=== PATIENT | female | born 2005 | race Caucasian/White ===

== ENCOUNTER 2024-03-19 22:44 | Emergency (ER) | payer OTHER, SELFPAY ==
[2024-03-19 22:46] VITALS: BP 132/84; PULSE 117; RESP 18; TEMP 36.7; O2SAT 100; BMI 21.5
[2024-03-19 22:48] VITALS: BP 132/84; PULSE 115; RESP 20; O2SAT 99
[2024-03-19 23:00] VITALS: BP 126/83; PULSE 115; RESP 18; O2SAT 98
--- NOTE | 2024-03-19 23:06 | CT_ITS ---
PROCEDURE INFORMATION: Exam: CT Abdomen And Pelvis With Contrast Exam date and time: 03/19/2024 11:48 PM Age: 19 years old Clinical indication: Abdominal pain; Additional info: Rlq pain TECHNIQUE: Imaging protocol: Computed tomography of the abdomen and pelvis with contrast. Radiation optimization: All CT scans at this facility use at least one of these dose optimization techniques: automated exposure control; mA and/or kV adjustment per patient size (includes targeted exams where dose is matched to clinical indication); or iterative reconstruction. Contrast material: ISOVUE; Contrast volume: 75 ml; Contrast route: IV; COMPARISON: No relevant prior studies available. FINDINGS: Liver: Normal. Gallbladder and biliary ducts: No acute process. Pancreas: Normal. Spleen: Normal. Adrenal glands: The adrenal glands appear normal. Kidneys and ureters: There are no soft tissue renal masses or hydronephrosis. Stomach and bowel: The stomach, small bowel, and colon are well-distended and show no evidence of wall thickening, masses, or obstruction. Appendix: The appendix is normal in appearance. Intraperitoneal space: There is a small volume of free fluid in the pelvis. Vasculature: The abdominal aorta and its major branches appear normal without evidence of aneurysm or stenosis. There are pelvic phleboliths. Lymph nodes: No lymphadenopathy. Urinary bladder: Unremarkable as visualized. Reproductive: 2 cm left adnexal cyst, possibly dominant follicle. Bones/joints: The visualized osseous structures of the abdomen and pelvis appear normal for patient age. Soft tissues: Unremarkable. IMPRESSION: 1. Normal appendix. 2. Small volume free fluid pelvis.
[2024-03-19 23:10] LABS: Microscopic, Urine URINE MICROSCOPIC (MICROSCOPIC)
[2024-03-19 23:13] LABS: Appearance,Urine CLEAR (Clear); Bilirubin,Urine Negative (Negative); Blood, Urine Negative (Negative); Color,Urine YELLOW (Yellow); Glucose,Urine (UA) Negative (Negative); Ketones,Urine TRACE (Negative); Leukocyte Esterase,Urine Negative (Negative); Nitrate,Urine Negative (Negative); Protein,Urine Negative (Negative); Specific Gravity, Urine 1.025 (1.005-1.030); Urobilinogen,Urine 0.2 EU/dl (0.2)
--- NOTE | 2024-03-19 23:13 | HMH.EDGENADL ---
Discharge Plan Disposition Patient Disposition: Home, Self-Care Prescriptions Prescriptions: New bisacodyl 5 mg tablet,delayed release (DR/EC) 5 mg PO DAILY Qty: 30 0RF Referrals Follow up/Referrals: Provider,Referral, MD [Primary Care Provider] - See instructions Activity Restrictions/Add. Instructions Additional Instructions/Restrictions: Please follow disimpaction sheet as discussed. Recommend continuing to take MiraLAX daily and titrate to 1-2 soft stools per day. Clinical Impressions Clinical Impression: Abdominal pain, RLQ Constipation Qualifiers: Constipation type: unspecified constipation type Qualified Code(s): K59.00 - Constipation, unspecified Instructions Patient Instructions: DI for Constipation Discharge ED Provider: Socrates No General Adult HPI General Chief complaint: Abdominal Pain Stated complaint: abdominal pain, nausea Time Seen by Provider: 03/19/24 22:55 Mode of Arrival: Ambulatory Source of Information: Patient Limitations: No Limitations Description of Symptoms (Recalled from ER Triage Doc. by RN): Patient reports RLQ abdominal pain and right flank pain that has been persistent for approximately 2 days. Patient reports swelling to this area for approximately 3 days. Patient has had nausea without vomiting, increased urinary frequency without dysuria, denies vomiting, diarrhea, fevers at home. Patient reports irregular periods, but is currently menstruating. History of Present Illness HPI narrative: 19-year-old female with out significant past medical history presents for right lower quad abdominal pain. She reports that it has been present in her right lower quadrant and now in her right flank for approximate last 2-3 days. She reports increased urination. She reports some nausea but no vomiting. She reports that she only poops approximately once a week, but did but this morning it was soft. She denies any recent fevers. She is currently menstruating but has irregular periods. Has had no abdominal surgery. History of kidney stones Related Data Previous Rx's Medication Instructions Recorded bisacodyl 5 mg tablet,delayed 5 mg PO DAILY #30 tabs 03/20/24 release Allergies Allergy/AdvReac Type Severity Reaction Status Date / Time sulfamethoxazole Allergy Verified 03/19/24 22:57 [From Bactrim] trimethoprim [From Bactrim] Allergy Verified 03/19/24 22:57 [facility] Disclaimer: The information contained in this section may have been updated after the patient was seen, as this information can be updated by other users. Medical History (Updated 03/20/24 @ 00:59 by Jose Bernard MD) No significant past medical history Social History Smoking Status: Current every day smoker alcohol intake: never current occupational status: employed Travel in the last 8 weeks: None ROS Obtained: Yes All systems reviewed & no additional complaints except as documented Physical Exam General General appearance: alert and in no apparent distress Head Head exam: atraumatic and normocephalic Eye Eye exam: Present normal appearance, PERRL and EOMI ENT ENT exam: Present normal oropharynx and normal external ear exam Neck Neck exam: Present normal inspection and full ROM Chest Chest inspection: Present normal inspection and symmetric chest wall rise; Absent tenderness Respiratory Respiratory exam: Present normal lung sounds bilaterally; Absent respiratory distress Cardiovascular Cardiovascular exam: Present regular rate and normal rhythm Abdominal Exam Abdominal exam: Present soft and tenderness (RLQ); Absent distention or guarding Extremities Exam Extremities exam: Present normal inspection; Absent edema or joint swelling Back Exam Back exam: Present normal inspection; Absent tenderness Neurological Exam Neurological exam: Present alert and oriented X3; Absent motor sensory deficit Psychiatric Psychiatric exam: Present normal affect and normal mood Skin Skin exam: Present warm, dry and normal color Lymphatic Lymphatic Findings: no adenopathy Medical Decision Making Medical Records Medical records reviewed: Yes I reviewed the patient's medical records. Rishi Inquiry Pt receiving controlled substance: No Rishi was queried for this patient: No Vital Signs: 03/19/24 22:46 03/19/24 22:48 03/19/24 23:00 Temperature 98.0 F Temperature Source Oral Pulse Rate 115 H 115 H Pulse Rate [Left Radial] 117 H Respiratory Rate 18 20 18 Blood Pressure 132/84 126/83 Blood Pressure [Right Arm] 132/84 Blood Pressure Mean 100 Blood Pressure Mean [Right Arm] 100 Blood Pressure Source Blood Pressure Source [Right Arm] Automatic Cuff Blood Pressure Position Blood Pressure Position [Right Arm] Sitting 02 Sat by Pulse Oximetry 100 99 98 Oxygen Delivery Method Room Air Room Air Room Air 03/19/24 23:30 03/20/24 00:00 03/20/24 01:16 Temperature 98.1 F Temperature Source Oral Pulse Rate 106 H 96 H 62 Pulse Rate [Left Radial] Respiratory Rate 16 17 Blood Pressure 121/74 121/64 123/74 Blood Pressure [Right Arm] Blood Pressure Mean Blood Pressure Mean [Right Arm] Blood Pressure Source Automatic Cuff Blood Pressure Source [Right Arm] Blood Pressure Position Sitting Blood Pressure Position [Right Arm] 02 Sat by Pulse Oximetry 99 100 Oxygen Delivery Method Room Air Room Air Room Air Lab Data Lab results reviewed: Yes I reviewed the patient's lab results. Lab Results 03/19/24 22:53: Urine Color Yellow, Urine Appearance Clear, Urine pH 6.0, Ur Specific [place] 1.025, Urine Protein Negative, Urine Glucose (UA) Negative, Urine Ketones Trace, Urine Blood Negative, Urine Nitrate Negative, Urine Bilirubin Negative, Urine Urobilinogen 0.2, Ur Leukocyte Esterase Negative, Urine RBC None, Urine WBC None, Ur Squamous Epith Cells Occasional, Urine Bacteria None, Urine Mucus 1+ 03/19/24 23:15: WBC 8.0, RBC 4.06 L, Hgb 12.4, Hct 37.1, MCV 91.3, MCH 30.6, MCHC 33.5, RDW 15.4, Plt Count 385, MPV 6.8 L, Neut % (Auto) 56.4, Lymph % (Auto) 37.5, [place] % (Auto) 4.6, Eos % (Auto) 0.8, Baso % (Auto) 0.6, Neut # (Auto) 4.5, Lymph # (Auto) 3.0, [place] # (Auto) 0.4, Eos # (Auto) 0.1, Baso # (Auto) 0.1, Sodium 138, Potassium 3.9, Chloride 103, Carbon Dioxide 26, Anion Gap 12.9, BUN 13, Creatinine 0.80, Estimated Creat Clear 94, Estimated GFR 91, Est GFR ( Amer) 110, Glucose 92, Calcium 9.2, Total Bilirubin 0.3, AST 22, ALT 11 L, Alkaline Phosphatase 43, Total Protein 7.2, Albumin 4.4, Globulin 2.8, Albumin/Globulin Ratio 1.6, Serum HCG, Qual Negative 03/19/24 23:15 03/19/24 23:15 Orders (Tests/Meds): ED MEDICATIONS Discontinued Medications Generic Name Dose Route Start Last Admin Trade Name Freq PRN Reason Stop Dose Admin Iopamidol 75 ml 03/19/24 23:50 03/19/24 23:51 Iopamidol-370 (76%);100ml Bottle IV 03/19/24 23:51 75 ml ONCE ONE Administration Sodium Chloride 10 ml 03/19/24 23:50 03/19/24 23:51 Sodium Chloride 0.9% 10ml Syr (Rad Only) IV 04/18/24 23:49 10 ml NEEDED PRN Administration Maintain IV Site ORDERS Category Date Time Status CT abdomen pelvis w con Stat Cat Scan 03/19/24 23:06 Completed CBC w/Auto Diff [Complete Blood Count Auto Diff] Stat Lab 03/19/24 23:15 Completed CMP [Comprehensive Metabolic Panel] Stat Lab 03/19/24 23:15 Completed HCG Qualitative, Serum Stat Lab 03/19/24 23:15 Completed UA [Urinalysis and Microscopic] Stat Lab 03/19/24 22:53 Completed Medical Decision Narrative: 19-year-old female without significant past medical history presents with 3 days of right lower quadrant pain.. History was obtained interactive discussion with patient. On arrival, patient is [afebrile, hemodynamically stable, satting appropriately, alert, oriented x4, GCS 15], moving all extremities spontaneously. Full physical exam performed and significant for right lower quadrant tenderness. Differential includes but is not limited to , appendicitis, constipation, UTI, pyelonephritis, ureterolithiasis, ovarian pathology Workup initiated including CBC CMP urine urinalysis CT abdomen and pelvis with IV contrast. On re-evaluation, patient [remains afebrile, HD stable.] Laboratory workup independently interpreted by me and significant for negative test, no significant electrolyte derangement, no leukocytosis, urine without evidence of infection. Imaging independently interpreted by me and significant for CT scan without evidence of appendicitis or other significant pathology. Does show somewhat dilated and stool-filled right colon which is almost certainly the cause of patient's symptoms.. See radiology read for full review of final results. Given patient history, exam and workup, patient's presentation most likely represents right-sided constipation. Extensive discussion was had with patient regarding her presentation, workup and treatment. She was given a bowel cleanout sheet and was prescribed bisacodyl. Instructed to titrate MiraLAX to 1-2 soft stools per day. Discharged in stable condition. Return precautions given.. Procedures Risk/Benefits of Procedure(s) Were Explained: Yes Critical Care Critical Care Time Critical Care Time: No
[2024-03-19 23:24] LABS: Mucus,Urine 1+ /lpf; Squamous Epithelial Cell,Urine Occasional #/hpf (0-5)
[2024-03-19 23:26] LABS: Basophils # 0.1 K/mm3 (0-0.2); Basophils % 0.6 % (0.1-2.0); Eosinophils # 0.1 K/mm3 (0.0-0.4); Eosinophils % 0.8 % (0.1-12.0); Hematocrit 37.1 % (37.0-47.0); Hemoglobin 12.4 g/dL (12.2-16.2); Lymphocytes % 37.5 % (10-50); Mean Corpuscular HGB Conc 33.5 g/dL (31.8-35.4); Mean Corpuscular Hemoglobin 30.6 pg (27.0-31.2); Mean Corpuscular Volume 91.3 fl (81-99); Mean Platelet Volume 6.8 fl (7.4-10.4); Monocytes # 0.4 K/mm3 (0.1-1.0); Monocytes % 4.6 % (1.7-9.3); Neutrophils # 4.5 K/mm3 (1.8-7.8); Neutrophils % 56.4 % (37.0-80.0); Platelet Count 385 K/mm3 (142-424); Red Blood Count 4.06 M/mm3 (4.20-5.40); Red Cell Distribution Width 15.4 % (11.5-17.5)
[2024-03-19 23:30] VITALS: BP 121/74; PULSE 106; RESP 16; O2SAT 99
[2024-03-19 23:35] LABS: Alanine Aminotransferase 11 U/L (12-78); Albumin Level 4.4 g/dl (3.5-5.0); Albumin/Globulin Ratio 1.6 (1.1-1.8); Alkaline Phosphatase 43 U/L (38-126); Anion Gap 12.9 mEq/L (5-15); Aspartate Amino Transferase 22 U/L (14-36); Bilirubin,Total 0.3 mg/dl (0.2-1.3); Blood Urea Nitrogen 13 mg/dl (7-17); Calcium 9.2 mg/dl (8.4-10.2); Carbon Dioxide 26 mmol/L (22.0-30.0); Chloride 103 mmol/L (98-107); Creatinine Clearance Estimated 94 mL/min (50-200); Estimated Glomerular Filt Rate 91 ml/min (>60); GFR (African American) 110 ML/MIN (>60); Globulin 2.8 g/dL (1.3-3.2); Glucose 92 mg/dl (74-100); Potassium 3.9 mmoL/L (3.5-5.1); Sodium 138 mmol/L (136-145); Total Protein,Serum 7.2 g/dl (6.3-8.2)
[2024-03-19 23:37] LABS: HCG Qualitative, Serum Negative (Negative)
--- NOTE | 2024-03-19 23:40 | PC.NURSE ---
pt to ct scan via wheelchair
[2024-03-19] MEDS: SODIUM CHLORIDE 0.9% 10ML SYR (RAD ONLY) 10 ML IV (23:51)
[2024-03-19] MEDS: IOPAMIDOL-370 (76%);100ML BOTTLE 75 ML IV (23:51)
[2024-03-20] VITALS: BP 121/64; PULSE 96; O2SAT 100
[2024-03-20 01:16] VITALS: BP 123/74; PULSE 62; RESP 17; TEMP 36.7; O2SAT 100
== END 2024-03-20 01:18 | disposition home or self-care (01) ==
PROVIDERS: Emergency Medicine; Emergency Provider Student in an Organized Health Care Education/Training Program
DX: R10.31 Right lower quadrant pain (principal); K59.00 Constipation, unspecified; R11.0 Nausea; F17.210 Nicotine dependence, cigarettes, uncomplicated
CPT/HCPCS: 74177; 80053; 81001; 84703; 85025; 99284; Q9967

== ENCOUNTER 2024-10-29 23:03 | Observation (INO) | payer OTHER, SELFPAY ==
[2024-10-29 23:24] VITALS: BP 109/83; PULSE 110; RESP 16; TEMP 36.8; O2SAT 100; BMI 20.8
--- NOTE | 2024-10-29 23:27 | PC.NURSE ---
Pt awake alert and oriented Symptoms have been going on for months. Pt states pain worse for an episode tonight. Skin pale warm and dry Resp full and easy Speech clear and appropriate. MD at bedside. Abd soft and flat. + bowel sounds x4 Last BM today
[2024-10-29 23:30] VITALS: BP 111/73; PULSE 98; O2SAT 100
[2024-10-29] MEDS: 0.9 % SODIUM CHLORIDE 1000ML 1,000 ML 999 ML IV (23:39)
[2024-10-29 23:42] LABS: Basophils % 0.5 % (0.1-2.0); Eosinophils # 0.1 K/mm3 (0.0-0.4); Eosinophils % 0.8 % (0.1-12.0); Hematocrit 35.2 % (37.0-47.0); Hemoglobin 11.5 g/dL (12.2-16.2); Lymphocytes # 2.1 K/mm3 (0.7-4.5); Lymphocytes % 33.3 % (10-50); Mean Corpuscular HGB Conc 32.7 g/dL (31.8-35.4); Mean Corpuscular Hemoglobin 29.5 pg (27.0-31.2); Mean Corpuscular Volume 90.3 fl (81-99); Mean Platelet Volume 10.7 fl (7.4-10.4); Monocytes # 0.5 K/mm3 (0.1-1.0); Monocytes % 8.6 % (1.7-9.3); Neutrophils # 3.6 K/mm3 (1.8-7.8); Neutrophils % 56.6 % (37.0-80.0); Platelet Count 415 K/mm3 (142-424); Red Cell Distribution Width 13.3 % (11.5-17.5); White Blood Count 6.3 K/mm3 (4.8-10.8)
[2024-10-29 23:43] LABS: Albumin Level 4.8 g/dl (3.5-5.0); Chloride 106 mmol/L (98-107); Potassium 3.8 mmoL/L (3.5-5.1); Sodium 140 mmol/L (136-145)
[2024-10-29 23:45] LABS: Alanine Aminotransferase 17 U/L (12-78); Albumin/Globulin Ratio 2.1 (1.1-1.8); Alkaline Phosphatase 46 U/L (38-126); Anion Gap 13.8 mEq/L (5-15); Aspartate Amino Transferase 25 U/L (14-36); Bilirubin,Total 0.2 mg/dl (0.2-1.3); Blood Urea Nitrogen 10 mg/dl (7-17); Carbon Dioxide 24 mmol/L (22.0-30.0); Creatinine Clearance Estimated 121 mL/min (50-200); Estimated Glomerular Filt Rate 126 ml/min (>60); GFR (African American) 153 ML/MIN (>60); Globulin 2.3 g/dL (1.3-3.2); Total Protein,Serum 7.1 g/dl (6.3-8.2)
[2024-10-29 23:46] LABS: Calcium 9.2 mg/dl (8.4-10.2); Glucose 101 mg/dl (74-100); Lipase 93 U/L (23-300); Magnesium 1.7 mg/dl (1.6-2.3)
--- NOTE | 2024-10-29 23:48 | PC.NURSE ---
ultrasound called in for study
[2024-10-29 23:55] LABS: HCG Qualitative, Serum Negative (Negative)
[2024-10-30] VITALS (7 sets, daily range): BP systolic 96–112; BP diastolic 50–76; PULSE 69–85; RESP 15–18; TEMP 36.7–36.9; O2SAT 97–100
--- NOTE | 2024-10-30 | US_ITS ---
PROCEDURE INFORMATION: Exam: US Pelvis, Transvaginal, Non-Obstetric Exam date and time: 10/30/2024 12:11 AM Age: 19 years old Clinical indication: Pelvic pain; Additional info: Acute severe pelvic pain l>r TECHNIQUE: Imaging protocol: Real-time transvaginal pelvic (non-obstetric) ultrasound with image documentation. Transvaginal imaging was used for better evaluation of the endometrium, adnexa, and/or cervix. COMPARISON: CT ABDOMEN PELVIS W CON 03/19/2024 11:48 PM FINDINGS: Uterus: Uterus is normal. Endometrial stripe measures up to 1.4 cm in thickness. Right ovary/adnexa: Normal. No mass. Normal ovarian blood flow on color Doppler. Left ovary/adnexa: Mildly edematous ovary with peripheral displacement of the follicles. There is a large cystic structure along the inferior aspect of the ovary measuring 2.7 x 2.5 x 2 cm. The ovary measures 5.4 x 2.3 x 3.4 cm with inclusion of the ovarian/paraovarian cyst; without inclusion of the cyst the ovary measures 3.6 x 2.3 x 3.4 cm. Normal ovarian blood flow on color Doppler. Urinary bladder: Urinary bladder is limited. Intraperitoneal space: Mild free fluid. IMPRESSION: 1. Left ovary is mildly edematous with peripherally displaced follicles and no loss of arterial flow. Cannot exclude an intermittent or partial ovarian torsion. 2. A large paraovarian/ovarian simple cyst is present that may act as a lead point. THIS REPORT CONTAINS FINDINGS THAT MAY BE CRITICAL TO PATIENT CARE. The findings were verbally communicated via telephone conference with Jose Bernard at 1:21 AM EST on 10/30/2024. The findings were acknowledged and understood.
[2024-10-30 00:02] LABS: Microscopic, Urine URINE MICROSCOPIC (MICROSCOPIC)
[2024-10-30 00:04] LABS: Appearance,Urine CLEAR (Clear); Bilirubin,Urine Negative (Negative); Blood, Urine Negative (Negative); Color,Urine YELLOW (Yellow); Glucose,Urine (UA) Negative (Negative); Ketones,Urine Negative (Negative); Leukocyte Esterase,Urine Negative (Negative); Nitrate,Urine Negative (Negative); PH,Urine 7.5 (5.0-8.5); Protein,Urine Negative (Negative); Specific Gravity, Urine 1.015 (1.005-1.030); Urobilinogen,Urine 0.2 EU/dl (0.2)
[2024-10-30 00:17] LABS: RBC,Urine Occasional #/hpf (0-3)
--- NOTE | 2024-10-30 00:20 | HMH.EDGENADL ---
Discharge Plan Disposition Patient Disposition: Admitted Prescriptions Prescriptions: No Action bisacodyl 5 mg tablet,delayed release (DR/EC) 5 mg PO DAILY Qty: 30 0RF Clinical Impressions Clinical Impression: Torsion of left ovary Instructions Patient Instructions: DI for Acute Abdominal Pain Print Language Print Language: Russian Discharge ED Provider: Jose Bernard Adult HPI General Chief complaint: Abdominal Pain Stated complaint: abd pain Time Seen by Provider: 10/29/24 23:26 Mode of Arrival: EMS Source of Information: Patient Limitations: No Limitations Description of Symptoms (Recalled from ER Triage Doc. by RN): lower abdominal pain with vomiting History of Present Illness HPI narrative: 19-year-old female presents for acute onset of severe left pelvic pain radiating to the middle. She reports that nothing like this exactly has happened before but she did have some right lower quadrant pain a couple weeks ago. Been dealing with multiple chronic GI issues including upper GI symptoms such as dysphagia. She is also been having some epigastric pain and generalized abdominal pain recently as well. Denies any fever at home. She has been trying to get a scope for her dysphagia issues. Related Data Previous Rx's ?Medication ?Instructions ?Recorded bisacodyl 5 mg tablet,delayed 5 mg PO DAILY #30 tabs 03/20/24 release Allergies Allergy/AdvReac Type Severity Reaction Status Date / Time sulfamethoxazole (From Allergy Verified 03/19/24 22:57 Bactrim) trimethoprim (From Bactrim) Allergy Verified 03/19/24 22:57 [facility] Disclaimer: The information contained in this section may have been updated after the patient was seen, as this information can be updated by other users. Medical History (Updated 10/30/24 @ 01:33 by Jose Bernard MD) No significant past medical history Social History (Updated 03/20/24 @ 01:20 by Jose Bernard MD) Smoking Status: Current every day smoker alcohol intake: never current occupational status: employed Travel in the last 8 weeks: None ROS Obtained: Yes All systems reviewed & no additional complaints except as documented Physical Exam General General appearance: alert and anxious Head Head exam: atraumatic and normocephalic Eye Eye exam: Present normal appearance, PERRL and EOMI ENT ENT exam: Present normal oropharynx and normal external ear exam Neck Neck exam: Present normal inspection and full ROM Chest Chest inspection: Present normal inspection and symmetric chest wall rise; Absent tenderness Respiratory Respiratory exam: Present normal lung sounds bilaterally; Absent respiratory distress Cardiovascular Cardiovascular exam: Present regular rate and normal rhythm Abdominal Exam Abdominal exam: Present soft and tenderness; Absent distention or guarding Abdominal tenderness: Present LLQ (Mild to moderate moderate, no peritonitis) Extremities Exam Extremities exam: Present normal inspection; Absent edema or joint swelling Back Exam Back exam: Present normal inspection; Absent tenderness Neurological Exam Neurological exam: Present alert and oriented X3; Absent motor sensory deficit Psychiatric Psychiatric exam: Present normal affect and normal mood Skin Skin exam: Present warm, dry and normal color Lymphatic Lymphatic Findings: no adenopathy Medical Decision Making Medical Records Medical records reviewed: Yes I reviewed the patient's medical records. Screening: Per USPSTF and CDC recommendations, given the prevalence of disease in our region, it is our hospital?s policy to screen for HIV and viral Hepatitis for all patients aged 18 and over and those with ongoing risk factors. Rishi Inquiry Pt receiving controlled substance: No Rishi was queried for this patient: No Vital Signs: 10/29/24 23:24 10/29/24 23:30 10/30/24 01:14 Temperature 98.2 F Temperature Source Oral Pulse Rate 98 H 84 Pulse Rate [Right Brachial] 110 H Respiratory Rate 16 Blood Pressure 111/73 96/63 L Blood Pressure [Right Arm] 109/83 L Blood Pressure Mean [Right Arm] 91 Blood Pressure Source Blood Pressure Position [Right Arm] Sitting 02 Sat by Pulse Oximetry 100 100 100 Oxygen Delivery Method Room Air Room Air Room Air 10/30/24 01:18 Temperature Temperature Source Pulse Rate 85 Pulse Rate [Right Brachial] Respiratory Rate 15 Blood Pressure 96/63 L Blood Pressure [Right Arm] Blood Pressure Mean [Right Arm] Blood Pressure Source Automatic Cuff Blood Pressure Position [Right Arm] 02 Sat by Pulse Oximetry 100 Oxygen Delivery Method Room Air Lab Data Lab results reviewed: Yes I reviewed the patient's lab results. Lab Results 10/29/24 23:20: WBC 6.3, RBC 3.90 L, Hgb 11.5 L, Hct 35.2 L, MCV 90.3, MCH 29.5, MCHC 32.7, RDW 13.3, Plt Count 415, MPV 10.7 H, Neut % (Auto) 56.6, Lymph % (Auto) 33.3, [place] % (Auto) 8.6, Eos % (Auto) 0.8, Baso % (Auto) 0.5, Neut # (Auto) 3.6, Lymph # (Auto) 2.1, [place] # (Auto) 0.5, Eos # (Auto) 0.1, Baso # (Auto) 0.0, Sodium 140, Potassium 3.8, Chloride 106, Carbon Dioxide 24, Anion Gap 13.8, BUN 10, Creatinine 0.60, Estimated Creat Clear 121, Estimated GFR 126, Est GFR ( Amer) 153, Glucose 101 H, Calcium 9.2, Magnesium 1.7, Total Bilirubin 0.2, AST 25, ALT 17, Alkaline Phosphatase 46, Total Protein 7.1, Albumin 4.8, Globulin 2.3, Albumin/Globulin Ratio 2.1 H, Lipase 93, Serum HCG, Qual Negative, HCV Ab AKIKO w/Rflx PCR Qn Negative, HIV Ag/Ab Combo Qual Negative 10/29/24 23:56: Urine Color Yellow, Urine Appearance Clear, Urine pH 7.5, Ur Specific [place] 1.015, Urine Protein Negative, Urine Glucose (UA) Negative, Urine Ketones Negative, Urine Blood Negative, Urine Nitrate Negative, Urine Bilirubin Negative, Urine Urobilinogen 0.2, Ur Leukocyte Esterase Negative, Urine RBC Occasional, Urine WBC 3-5, Ur Squamous Epith Cells 3-5 10/29/24 23:20 10/29/24 23:20 Orders (Tests/Meds): ED MEDICATIONS Generic Name Dose Route Start Last Admin Trade Name Freq PRN Reason Stop Dose Admin Acetaminophen 650 mg 10/30/24 01:30 Acetaminophen 325mg Tab PO 11/29/24 01:29 Q6HP PRN Fever or Mild Pain (1-3) Lactated Ringer's 1,000 mls @ 90 mls/hr 10/30/24 01:30 Lactated Ringer's 1000 Ml Bag IV 11/29/24 01:29 .[id number] [facility] Ibuprofen 600 mg 10/30/24 01:30 Ibuprofen 600 Mg Tablet PO 11/29/24 01:29 Q6HP PRN Fever or Mild Pain (1-3) Discontinued Medications Generic Name Dose Route Start Last Admin Trade Name Freq PRN Reason Stop Dose Admin Acetaminophen 1,000 mg 10/29/24 23:33 10/30/24 00:00 Acetaminophen 500mg Tab PO 10/29/24 23:34 Not Given ONCE ONE Sodium Chloride 1,000 mls @ 999 mls/hr 10/29/24 23:45 10/29/24 23:39 Sod Chlor 0.9% 1000ml Bag IV 10/30/24 00:45 999 mls/hr .Q1H1M [facility] Administration ORDERS Category Date Time Status US transvaginal Stat Exams 10/30/24 00:00 Completed CBC w/Auto Diff [Complete Blood Count Auto Diff] Stat Lab 10/29/24 23:20 Completed CMP [Comprehensive Metabolic Panel] Stat Lab 10/29/24 23:20 Completed HCG Qualitative, Serum Stat Lab 10/29/24 23:20 Completed HIV Combo Routine Lab 10/29/24 23:20 Completed Hepatitis C Ab Qual. W/ RFX Routine Lab 10/29/24 23:20 Completed Lipase Stat Lab 10/29/24 23:20 Completed Magnesium Stat Lab 10/29/24 23:20 Completed UA [Urinalysis and Microscopic] Stat Lab 10/29/24 23:56 Completed Medical Decision Narrative: 19-year-old female G2, P2 with history of anxiety, dysphagia, chronic abdominal pain presents for acute onset severe left pelvic pain starting a couple hours prior to arrival improved by the time she got to the ER.. History was obtained via interactive discussion with patient. On arrival, patient is [afebrile, hemodynamically stable, satting appropriately, alert, oriented x4, GCS 15], moving all extremities spontaneously. Full physical exam performed and significant for mild to moderate left pelvic tenderness Differential includes but is not limited to ovarian torsion, ectopic , ruptured ovarian cyst, mittelschmerz constipation, UTI pyelonephritis. Patient was given IV fluids, Tylenol for symptomatic management and correction of underlying abnormalities. Workup initiated including CBC CMP test UA transvaginal ultrasound. On re-evaluation, patient [remains afebrile, HD stable.] She has not had return of the severe pain. Remains minimally tender on exam. Laboratory workup independently interpreted by me and significant for no significant leukocytosis, no significant electrolyte derangement, urine not consistent with acute urinary tract infection.. Imaging independently interpreted by me and significant for transvaginal ultrasound shows borderline large edematous left ovary with a large left ovarian cyst. There is good flow but some secondary signs concerning for intermittent torsion. See radiology read for full review of final results. Given patient history, exam and workup, patient's presentation most likely represents intermittent left ovarian torsion. Interactive discussion was had with the [employer]BER GRADER on-call. Given patient is well-appearing and only minimally tender at this time with good flow to the ovary, it was decided that the best course of action would be for admission for observation for possible intermittent torsion. Patient was anxious but agreeable to admission. Procedures Risk/Benefits of Procedure(s) Were Explained: Yes Critical Care Critical Care Time Critical Care Time: No
[2024-10-30 00:33] LABS: HIV Combo NEGATIVE (Negative)
[2024-10-30 00:42] LABS: Hepatitis C Ab Qual. W/ RFX NEGATIVE (Negative)
--- NOTE | 2024-10-30 00:42 | PC.NURSE ---
Report given to Jacquie BEDOYA
--- NOTE | 2024-10-30 01:15 | PC.NURSE ---
Pt laying in bed at this time. Lights turned down per pt request. No other needs voiced at this time.
--- NOTE | 2024-10-30 01:33 | PC.NURSE ---
Report called to Daksha BEDOYA
[2024-10-30] MEDS: LACTATED RINGERS 1000ML 1,000 ML 90 ML IV ×2 (01:40→04:59)
--- NOTE | 2024-10-30 01:50 | PC.NURSE ---
Pt to inpatient unit via wheelchair with IV and RN Pt comfortable at this time Denies pain
--- NOTE | 2024-10-30 01:55 | PC.NURSE ---
Patient arrived to the unit at this time via wheelchair from ED.
--- NOTE | 2024-10-30 05:03 | PC.NURSE ---
Upon entering patient's room to [facility], this RN found a small bottle of water partially drank and an empty Raymond's cup in the patient's bed. Upon arrival to unit patient was instructed to not take anything by mouth. Patient did verbalize this understanding. Patient reports drinking prior to falling asleep about 0440.
--- NOTE | 2024-10-30 05:51 | US_ITS ---
PROCEDURE: US TRANSVAGINAL CLINICAL INDICATION: f/u for intermittent ovarian torsion COMPARISON: CT CT ABDOMEN PELVIS W CON from 03/19/2024 US US TRANSVAGINAL from 10/30/2024 FINDINGS: Transvaginal sonographic images of the pelvis were obtained. UTERUS: 9.9 cm x 5.8 cmx 5.3cm anteverted with a combined endometrial thickness of 19.6mm. LEFT OVARY: 5.6cmx2.8 cmx3.2cm with a volume of 26.3ml. This measurement includes the cyst. The ovary itself without the cyst measures 3.6 cm x 2.8 cm x 3.2 cm. There is a paraovarian cyst measuring 3.0 cm x 1.8 cm x 2.0 cm Similar in appearance to an ultrasound done earlier today. There is good blood flow to the ovary. There are multiple small peripheral follicles. There is free fluid around the left ovary. RIGHT OVARY: 3.0cmx 2.6 cmx 1.7 cm with a volume of 6.9ml. There are multiple small peripheral follicles giving the ovary a polycystic appearance. Both ovaries are seen and appear polycystic. Doppler flow to both ovaries are seen. There is a moderate amount of fluid in the cul-de-sac. This could be inflammatory fluid. IMPRESSION: 1. Anteverted uterus normal in shape and enlarged in size. The endometrium is thickened and likely premenstrual measuring 19.6 mm. 2. The left ovary is visualized and there are multiple small peripheral follicles. The left ovary is normal in size. There is a para- ovarian cyst measuring 3.0 cm in size. There is small amount of free fluid around the left ovary. There is good Doppler flow. 3. Left ovary is similar appearance to the previous ultrasound done few hours earlier. 4. Right ovary is seen and appears polycystic. 5. There is moderate fluid in the cul-de-sac possibly inflammatory. 6. Discussed the findings with Dr. Aly. Dictated by: Victor Hugo Crowe MD 10/30/2024 08:49 Victor Hugo Crowe MD in OV 10/30/2024 08:49
--- NOTE | 2024-10-30 07:20 | PC.NURSE ---
Patient off unit at this time with radiology.
--- NOTE | 2024-10-30 07:21 | PC.NURSE ---
Patient to radiology at this time.
--- NOTE | 2024-10-30 07:49 | PC.NURSE ---
Patient back from radiology.
--- NOTE | 2024-10-30 10:45 | PC.NURSE ---
Vaginal swab obtained. consent obtained prior to this. education provided
--- NOTE | 2024-10-30 12:29 | P.HPDS_ITS ---
General Admission date:: 10/30/24 Discharge date: 10/30/24 *Admission Date: 10/30/24 *Chief complaint: Abdominal pain *History of present illness: Consulted from the emergency department for significant abdominal pain that resolved with 1 dose of Tylenol. ED had concerns for ovarian torsion secondary to an ovarian cyst in the setting of severe pain. Patient denies any nausea or vomiting. Denies any sick contacts. Denies any fevers or chills. She has had 2 children before and states that the pain was worse than this. She is not taking any contraception. Denies that she has a new partner. Denies a history of STDs [facility] Disclaimer: The information contained in this section may have been updated after the patient was seen, as this information can be updated by other users. Medical History (Updated 10/30/24 @ 12:34 by Moriah Aly DO) Dysphagia GERD (gastroesophageal reflux disease) Family History (Updated 10/30/24 @ 02:22 by Daksha Donaldson RN) Grandmother Abdominal aneurysm Dementia Father Heart attack Grandmother Lung cancer Family/Other Breast cancer Mother Dementia POTS (postural orthostatic tachycardia syndrome) Family history of PCOS Sister Family history of PCOS Social History (Updated 10/30/24 @ 02:24 by Daksha Donaldson RN) Smoking Status: Current every day smoker tobacco type: e-cigarettes alcohol intake: never current occupational status: unemployed Travel in the last 8 weeks: None do you feel safe at home: Yes victim of physical abuse: No victim of emotional abuse: No victim of sexual abuse: No Contact w/someone who lives/traveled outside US past 30 days?: No Exposure to someone with infectious disease in past 14 days?: No Do you have a fever (greater than 100.4 F or 38 C)?: No Have you tested positive for COVID-19: No Exposed to someone with COVID-19 in past 14 days?: No Do you have a sore throat?: No Do you have a cough?: No Do you have any weakness?: No Are you experiencing any nausea/vomitting?: No Do you have any diarrhea?: No Are you experiencing any unusual bleeding?: No Do you have any muscle aches/pain?: No Do you have any abdominal pain?: No Are you experiencing loss of taste or smell?: No Other Medical History Have you received the Flu Vaccine for this season: No Have you received the Pneumonia Vaccine: No Review of Systems Review of Systems Review of systems (narrative): Review of Systems Constitutional: Denies fever, chills, and sweats Respiratory: Denies cough and shortness of breath Cardiovascular: Denies chest pain and lightheadedness Gastrointestinal: Admits abdominal pain. Denies nausea, vomiting. Genitourinary: Denies dysuria and incontinence Musculoskeletal: Denies shoulder pain and back pain Neurological: Denies change in speech or headaches Exam Data for Last 24 hours Vital signs and Labs for Last 24 Hours: Temp Pulse Resp BP Pulse Ox O2 Del Method 98.1 F 69 18 96/56 L 100 Room Air 10/30/24 07:45 10/30/24 07:45 10/30/24 07:45 10/30/24 07:45 10/30/24 08:15 10/30/24 10:30 Laboratory Results - last 24 hr 10/29/24 23:20: WBC 6.3, RBC 3.90 L, Hgb 11.5 L, Hct 35.2 L, MCV 90.3, MCH 29.5, MCHC 32.7, RDW 13.3, Plt Count 415, MPV 10.7 H, Neut % (Auto) 56.6, Lymph % (Auto) 33.3, [place] % (Auto) 8.6, Eos % (Auto) 0.8, Baso % (Auto) 0.5, Neut # (Auto) 3.6, Lymph # (Auto) 2.1, [place] # (Auto) 0.5, Eos # (Auto) 0.1, Baso # (Auto) 0.0, Sodium 140, Potassium 3.8, Chloride 106, Carbon Dioxide 24, Anion Gap 13.8, BUN 10, Creatinine 0.60, Estimated Creat Clear 121, Estimated GFR 126, Est GFR ( Amer) 153, Glucose 101 H, Calcium 9.2, Magnesium 1.7, Total Bilirubin 0.2, AST 25, ALT 17, Alkaline Phosphatase 46, Total Protein 7.1, Albumin 4.8, Globulin 2.3, Albumin/Globulin Ratio 2.1 H, Lipase 93, Serum HCG, Qual Negative, HCV Ab AKIKO w/Rflx PCR Qn Negative, HIV Ag/Ab Combo Qual Negative 10/29/24 23:56: Urine Color Yellow, Urine Appearance Clear, Urine pH 7.5, Ur Specific [place] 1.015, Urine Protein Negative, Urine Glucose (UA) Negative, Urine Ketones Negative, Urine Blood Negative, Urine Nitrate Negative, Urine Bilirubin Negative, Urine Urobilinogen 0.2, Ur Leukocyte Esterase Negative, Urine RBC Occasional, Urine WBC 3-5, Ur Squamous Epith Cells 3-5 I & O for Last 24 hours: Intake & Output 10/27/24 10/28/24 10/29/24 10/30/24 23:59 23:59 23:59 23:59 Weight 114 lb Constitutional Constitutional: no acute distress *Routine HEENT Exam Head: Present normocephalic Eye: Present EOMI and PERRL ENT: Present mucous membranes moist *Routine Neck Exam Neck: Present supple; Absent lymphadenopathy *Routine Respiratory Exam Respiratory: Present CTA bilaterally *Routine Cardiovascular Exam Cardiovascular: Present RRR *Routine Abdominal Exam Abdominal: Present soft, normoactive bowel sounds and tenderness (Very minimally tender in the left lower quadrant otherwise benign exam) *Routine Rectal Exam Rectal:: deferred *Routine Genitalia Exam Genitalia:: deferred *Routine Extremities Exam Extremities: Absent cyanosis, clubbing or edema *Routine Skin Exam Skin: Present warm; Absent rash *Routine Neurological Exam Neurological: Present alert and oriented X3 Meds Home Medications and Allergies Home Medications ?Medication ?Instructions ?Recorded ?Confirmed ?Type famotidine 40 mg/5 mL (8 mg/mL) 2.5 ml PO BID 10/30/24 10/30/24 History oral suspension New Prescriptions to Start Prescriptions: Allergies Allergy/AdvReac Type Severity Reaction Status Date / Time sulfamethoxazole (From Allergy Verified 03/19/24 22:57 Bactrim) trimethoprim (From Bactrim) Allergy Verified 03/19/24 22:57 Hospital Course Hospital Course Hospital Course: Patient was admitted for observation and repeat ultrasound this morning. Shira ears to have free fluid in the cul-de-sac likely a ovarian cyst rupture. Ovarian cyst versus fallopian tube cyst noted. Discussed that she should return to the emergency room for severe intractable pain as this may be intermittent torsion. This likelihood is very low as there was flow demonstrated in ultrasounds x 2. In addition to that it is not the clinical picture for torsion as her pain significantly improved with 1 dose of Tylenol and she had no nausea or vomiting. She has absolutely no pain on exam this morning and a very benign abdominal exam. Will repeat this ultrasound in approximately 10 days and have her follow-up after that. Strict return precautions and ED follow-up were given in the meantime. I also provided her with the office phone number so that she could call if any problems arose Results Data Completed and Pending Labs on day of discharge: Labs from last 24 hours 10/29/24 10/29/24 23:56 23:20 WBC 6.3 RBC 3.90 L Hgb 11.5 L Hct 35.2 L MCV 90.3 MCH 29.5 MCHC 32.7 RDW 13.3 Plt Count 415 MPV 10.7 H Neut % (Auto) 56.6 Lymph % (Auto) 33.3 [place] % (Auto) 8.6 Eos % (Auto) 0.8 Baso % (Auto) 0.5 Neut # (Auto) 3.6 Lymph # (Auto) 2.1 [place] # (Auto) 0.5 Eos # (Auto) 0.1 Baso # (Auto) 0.0 Sodium 140 Potassium 3.8 Chloride 106 Carbon Dioxide 24 Anion Gap 13.8 BUN 10 Creatinine 0.60 Estimated Creat Clear 121 Estimated GFR 126 Est GFR ( Amer) 153 Glucose 101 H Calcium 9.2 Magnesium 1.7 Total Bilirubin 0.2 AST 25 ALT 17 Alkaline Phosphatase 46 Total Protein 7.1 Albumin 4.8 Globulin 2.3 Albumin/Globulin Ratio 2.1 H Lipase 93 Serum HCG, Qual Negative Urine Color Yellow Urine Appearance Clear Urine pH 7.5 Ur Specific [place] 1.015 Urine Protein Negative Urine Glucose (UA) Negative Urine Ketones Negative Urine Blood Negative Urine Nitrate Negative Urine Bilirubin Negative Urine Urobilinogen 0.2 Ur Leukocyte Esterase Negative Urine RBC Occasional Urine WBC 3-5 Ur Squamous Epith Cells 3-5 HCV Ab AKIKO w/Rflx PCR Qn Negative HIV Ag/Ab Combo Qual Negative DS: Diagnosis Discharge Diagnosis (1) LLQ abdominal pain: Status: Acute Code(s): R10.32 - Left lower quadrant pain (2) Left pelvic adnexal fluid collection: Status: Acute Code(s): R19.8 - Other specified symptoms and signs involving the digestive system and abdomen (3) Left adnexal tenderness: Status: Acute Code(s): R10.2 - Pelvic and perineal pain Discharge Plan Disposition Patient Disposition: Home, Self-Care Follow up Plan Follow up with: Moriah Aly DO [Staff Physician] - 11/11/24 Prescriptions/Medication Reconciliation: Continued famotidine 40 mg/5 mL (8 mg/mL) suspension for reconstitution 2.5 ml PO BID Patient Comments: Take 2.5 mL( 1/2 teaspoonful) (20 mg) by mouth 2 (two) times a day. Problem Reconciliation Problems Reviewed?: Yes Patient Discharge Instructions ACTIVITY: Continue current activity DIET: regular diet Print Language: Guatemalan Providers Primary Care Provider: Provider,Referral Admit Provider: Moriah Aly Attending Provider: Moriah Aly
--- NOTE | 2024-10-30 13:30 | PC.NURSE ---
D/C education provided at this time. Encouraged questions. Strict return precautions given to patient.
[2024-11-05 02:08] LABS: Atopobium vaginae Low - 0 Score (.); BVAB2 Low - 0 Score (.); Candida albicans NAA Negative (Negative); Candida glabrata Negative (Negative); Chlamydia Trachomatis NAA Negative (Negative); HSV 1 NAA Negative (Negative); HSV 2 NAA Negative (Negative); Megasphaera 1 Low - 0 Score (.); Neisseria gonorrhoeae NAA Negative (Negative); Trich vag NAA Negative (Negative)
== END 2024-10-30 13:50 | disposition home or self-care (01) ==
LOC: ER 10-30 01:33 → OB 10-30 01:43
PROVIDERS: Admitting Provider Obstetrics & Gynecology; Emergency Provider Emergency Medicine; Visit Provider Obstetrics & Gynecology
DX: R10.32 Left lower quadrant pain (principal); R19.8 Other specified symptoms and signs involving the digestive system and abdomen; R10.2 Pelvic and perineal pain; F17.290 Nicotine dependence, other tobacco product, uncomplicated
CPT/HCPCS: 76830; 80053; 81001; 83690; 83735; 84703; 85025; 86803; 87389; 87491; 87529; 87591; 87661; 87798; 87801; G0378; J7030; J7120

== ENCOUNTER 2025-02-13 23:09 | Emergency (ER) | payer SELFPAY ==
[2025-02-13 23:15] VITALS: BP 143/95; PULSE 105; RESP 22; TEMP 36.8; O2SAT 100; BMI 21.2
[2025-02-13 23:30] VITALS: BP 126/81; PULSE 99; RESP 18; O2SAT 100
--- NOTE | 2025-02-13 23:30 | ECG_ITS ---
APPROVED REPORT Exam: Resting ECG HR:115 bpm ECG Measurements Heart Rate 115 AXES CA 183 P 57 QRSd 77 QRS 72 QT 322 T 54 QTc 390 Conclusion SINUS TACHYCARDIA NONSPECIFIC T-WAVE ABNORMALITY ABNORMAL RHYTHM ECG UNCONFIRMED REPORT Electronically signed by : RAJI NICOLE, 02/14/2025 06:55:04
--- NOTE | 2025-02-13 23:33 | XR_ITS ---
PROCEDURE INFORMATION: Exam: XR Soft Tissue Neck Exam date and time: 02/14/2025 12:03 AM Age: 19 years old Clinical indication: Dysphagia / difficulty swallowing; Additional info: Globus sensation, swallowed a peanut TECHNIQUE: Imaging protocol: Radiologic exam of the soft tissues of the neck. COMPARISON: CR Chest 02/13/2025 11:59 PM FINDINGS: Airway: Normal. No abnormal narrowing. Soft tissues: Normal. Normal epiglottis. Bones/joints: Unremarkable. IMPRESSION: No acute findings.
--- NOTE | 2025-02-13 23:33 | XR_ITS ---
PROCEDURE INFORMATION: Exam: XR Chest Exam date and time: 02/13/2025 11:59 PM Age: 19 years old Clinical indication: Pain; On breathing; Additional info: Globus sensation, chest pain TECHNIQUE: Imaging protocol: Radiologic exam of the chest. Views: 2 views. COMPARISON: CT ABDOMEN PELVIS W CON 03/19/2024 11:48 PM FINDINGS: Lungs: No consolidation. Pleural spaces: No pleural effusion. No pneumothorax. Heart/Mediastinum: No cardiomegaly. Bones/joints: Unremarkable. IMPRESSION: No acute findings.
--- NOTE | 2025-02-13 23:37 | ED_ITS ---
Discharge Plan Disposition Patient Disposition: Home, Self-Care Prescriptions Prescriptions: No Action famotidine 40 mg/5 mL (8 mg/mL) suspension for reconstitution 2.5 ml PO BID Patient Comments: Take 2.5 mL( 1/2 teaspoonful) (20 mg) by mouth 2 (two) times a day. Referrals Follow up/Referrals: Cristofer Rich II, MD [Staff Physician] - See instructions Provider,ReferralMD [Primary Care Provider] - See instructions Activity Restrictions/Add. Instructions Additional Instructions/Restrictions: Please follow-up with your primary care provider. Please return to the emergency department if you develop any new or worsening symptoms or become concerned for your health. Consider calling our GI doctor or following up through your primary care doctor to have an endoscopy to further assess your dysphagia. Clinical Impressions Clinical Impression: Globus sensation, Anxiousness Print Language Print Language: Khmer Discharge ED Provider: Jose Bernard General Adult HPI General Chief complaint: Chest Pain Stated complaint: Chest Pain Time Seen by Provider: 02/13/25 23:10 Mode of Arrival: Wheelchair Description of Symptoms (Recalled from ER Triage Doc. by RN): Pt presents to ED for CP & SOB because she feels like she has a peanut stuck in her throat. Pt states she ate a milkshake yesterday and it had peanuts and she feels like it is stuck. Pt states CP that radiates into L arm started approx 1.5 hrs ago. Pt states that she has been dx with tachycardia and she's concerned about getting a scope bc she doesn't want to be put to sleep. Pt states she thinks the has POTS but doesn't want to get tested for it. Pt has a plethora of complaints at this time. Pt is A&O*4 and rates pain /10. IV access obtained. VSS. bedside. History of Present Illness HPI narrative: 19-year-old female presents with concern that she has something stuck in her throat. She reports that she drank a milkshake that had peanuts in it yesterday and she felt like it might of gotten stuck. Since that time she has been able to drink multiple boosts protein shakes. She reports that it hurts to swallow. She reports that she sometimes she cannot swallow and she spits things out. She reports history of issues with dysphagia in the past but has not followed up to get a endoscopy. Denies any fever chills. Reports intermittent chest pain. Related Data Home Medications ?Medication ?Instructions ?Recorded ?Confirmed famotidine 40 mg/5 mL (8 mg/mL) 2.5 ml PO BID 10/30/24 10/30/24 oral suspension Allergies Allergy/AdvReac Type Severity Reaction Status Date / Time sulfamethoxazole (From Allergy Verified 03/19/24 22:57 Bactrim) trimethoprim (From Bactrim) Allergy Verified 03/19/24 22:57 PFSH [facility] Disclaimer: The information contained in this section may have been updated after the patient was seen, as this information can be updated by other users. Medical History (Updated 02/14/25 @ 02:16 by Jose Bernard MD) Dysphagia GERD (gastroesophageal reflux disease) Family History (Updated 10/30/24 @ 02:22 by Daksha Donaldson RN) Grandmother Abdominal aneurysm Dementia Father Heart attack Grandmother Lung cancer Family/Other Breast cancer Mother Dementia POTS (postural orthostatic tachycardia syndrome) Family history of PCOS Sister Family history of PCOS Social History (Updated 10/30/24 @ 02:24 by Daksha Donaldson, AURELIANO) Smoking Status: Current every day smoker tobacco type: e-cigarettes alcohol intake: never current occupational status: unemployed Travel in the last 8 weeks?: None do you feel safe at home: Yes victim of physical abuse: No victim of emotional abuse: No victim of sexual abuse: No Have you lived/traveled outside US in past 30 days?: No Contact w/someone who lives/traveled outside US past 30 days?: No Exposure to someone with infectious disease in past 14 days?: No Do you have a fever (greater than 100.4 F or 38 C)?: No Have you tested positive for COVID-19?: No Exposed to someone with COVID-19 in past 14 days?: No Do you have a sore throat?: No Do you have a cough?: No Do you have any weakness?: No Do you have any diarrhea?: No Are you experiencing any unusual bleeding?: No Do you have any muscle aches/pain?: No Do you have any abdominal pain?: No Are you experiencing loss of taste or smell?: No Other Medical History Have you received the Flu Vaccine for this season: No Have you received the Pneumonia Vaccine: No ROS Obtained: Yes All systems reviewed & no additional complaints except as documented Physical Exam General General appearance: alert, in no apparent distress and anxious Head Head exam: atraumatic and normocephalic Eye Eye exam: Present normal appearance, PERRL and EOMI ENT ENT exam: Present normal oropharynx and normal external ear exam Neck Neck exam: Present normal inspection, full ROM and trachea midline; Absent lymphadenopathy or thyromegaly Chest Chest inspection: Present normal inspection and symmetric chest wall rise; Absent tenderness Respiratory Respiratory exam: Present normal lung sounds bilaterally; Absent respiratory distress Cardiovascular Cardiovascular exam: Present regular rate and normal rhythm Abdominal Exam Abdominal exam: Present soft; Absent distention, tenderness or guarding Extremities Exam Extremities exam: Present normal inspection; Absent edema or joint swelling Back Exam Back exam: Present normal inspection; Absent tenderness Neurological Exam Neurological exam: Present alert and oriented X3; Absent motor sensory deficit Psychiatric Psychiatric exam: Present normal affect and normal mood Skin Skin exam: Present warm, dry and normal color Lymphatic Lymphatic Findings: no adenopathy Medical Decision Making Medical Records Medical records reviewed: Yes I reviewed the patient's medical records. Screening: Per USPSTF and CDC recommendations, given the prevalence of disease in our region, it is our hospital?s policy to screen for HIV and viral Hepatitis for all patients aged 18 and over and those with ongoing risk factors. Rishi Inquiry Pt receiving controlled substance: No Rishi was queried for this patient: No Vital Signs: 02/13/25 23:15 02/13/25 23:30 02/14/25 00:00 Temperature 98.3 F Temperature Source Oral Pulse Rate 99 H 105 H Pulse Rate [Left] 105 H Respiratory Rate 22 18 13 Blood Pressure 126/81 119/83 Blood Pressure [Right Arm] 143/95 H Blood Pressure Mean [Right Arm] 111 02 Sat by Pulse Oximetry 100 100 99 02/14/25 01:38 Temperature 98.6 F Temperature Source Oral Pulse Rate 96 H Pulse Rate [Left] Respiratory Rate 19 Blood Pressure 119/83 Blood Pressure [Right Arm] Blood Pressure Mean [Right Arm] 02 Sat by Pulse Oximetry Lab Data Lab results reviewed: Yes I reviewed the patient's lab results. Lab Results 02/13/25 23:15: WBC 7.5, RBC 4.12 L, Hgb 12.9, Hct 39.5, MCV 95.9, MCH 31.3 H, MCHC 32.7, RDW 13.5, Plt Count 366, MPV 10.4, Neut % (Auto) 58.4, Lymph % (Auto) 33.8, [place] % (Auto) 6.7, Eos % (Auto) 0.5, Baso % (Auto) 0.5, Neut # (Auto) 4.4, Lymph # (Auto) 2.5, [place] # (Auto) 0.5, Eos # (Auto) 0.0, Baso # (Auto) 0.0, Sodium 140, Potassium 3.4 L, Chloride 104, Carbon Dioxide 30, Anion Gap 9.4, BUN 15, Creatinine 0.70, Estimated Creat Clear 106, Estimated GFR 106, Est GFR ( Amer) 128, Glucose 104 H, Calcium 9.5, Total Bilirubin 0.2, AST 29, ALT 15, Alkaline Phosphatase 53, Total Protein 7.9, Albumin 5.1 H, Globulin 2.8, Albumin/Globulin Ratio 1.8, Serum HCG, Qual Negative, HCV Ab AKIKO w/Rflx PCR Qn Negative, HIV Ag/Ab Combo Qual Negative 02/13/25 23:15 02/13/25 23:15 Orders (Tests/Meds): ED MEDICATIONS Discontinued Medications Generic Name Dose Route Start Last Admin Trade Name Freq PRN Reason Stop Dose Admin Belladonna Alkaloids 60 ml 02/13/25 23:33 02/13/25 23:44 Belladonna Alkaloids 60 Ml Ml PO 02/13/25 23:34 60 ml ONCE ONE Administration Lactated Ringer's 1,000 mls @ 999 mls/hr 02/13/25 23:45 02/13/25 23:44 Lactated Ringer's 1000 Ml Bag IV 02/14/25 00:45 999 mls/hr .Q1H1M [facility] Administration ORDERS Category Date Time Status CXR 2 view (NOT portable) [XR chest 2V] Stat Exams 02/13/25 23:33 Completed XR soft tissue neck Stat Exams 02/13/25 23:33 Completed Beta HCG, Qual [HCG Qualitative, Serum] Stat Lab 02/13/25 23:15 Completed CBC w/Auto Diff [Complete Blood Count Auto Diff] Stat Lab 02/13/25 23:15 Completed CMP [Comprehensive Metabolic Panel] Stat Lab 02/13/25 23:15 Completed HIV Combo Stat Lab 02/13/25 23:15 Completed Hepatitis C Ab Qual. W/ RFX Stat Lab 02/13/25 23:15 Completed ECG Data Tracing #1: I reviewed this ECG and interpreted as documented below: Sinus tachycardia with ventricular rate of 115, no concerning ischemic changes, no evidence of arrhythmia. ECG initial impression date: 02/13/25 ECG initial impression time: 23:12 Medical Decision Narrative: 19-year-old female with reported history of chronic dysphagia and chronic tachycardia presents with concern for esophageal foreign body after she drank a milkshake with peanuts and yesterday.. History was obtained via interactive discussion with patient. On arrival, patient is [afebrile, hemodynamically stable, satting appropriately, alert, oriented x4, GCS 15], moving all extremities spontaneously. Full physical exam performed and significant for no significant physical exam abnormalities. Differential includes but is not limited to globus sensation, Jennifer-Hough, Boerhaave's, esophageal foreign body. Based on history, it sounds like patient has been able to swallow and tolerate her secretions since the incident yesterday. Low clinical concern for emergent pathology. Will evaluate with basic labs and chest and neck films.. Patient was given GI cocktail for symptomatic management and correction of underlying abnormalities. Workup initiated including test, CBC CMP two-view chest x-ray, soft tissue neck films. On re-evaluation, patient [remains afebrile, HD stable.] Laboratory workup independently interpreted by me and significant for negative test, no leukocytosis. Imaging independently interpreted by me and significant for clear lungs bilaterally without evidence of mediastinal air, no evidence of radiopaque foreign body or other lesion in the neck.. See radiology read for full review of final results. CT with p.o. contrast, endoscopy was considered, but deemed unnecessary due to low clinical concern for emergent pathology.. Given patient history, exam and workup, patient's presentation most likely represents globus sensation secondary to irritation of the esophagus from swallowing the penis yesterday. Patient is able to tolerate liquids here and at home. Patient discharged in stable condition return precautions. I had extensive and repeated discussion with patient regarding numerous topics. patient has many concerns and many anxieties regarding her health, labs, etc. Procedures Risk/Benefits of Procedure(s) Were Explained: Yes Critical Care Critical Care Time Critical Care Time: No
[2025-02-13] MEDS: LACTATED RINGERS 1000ML 1,000 ML 999 ML IV (23:44)
[2025-02-13] MEDS: BELLADONNA ALKALOIDS 60 ML ML PO (23:44)
[2025-02-13 23:46] LABS: Basophils % 0.5 % (0.1-2.0); Eosinophils % 0.5 % (0.1-12.0); Hematocrit 39.5 % (37.0-47.0); Hemoglobin 12.9 g/dL (12.2-16.2); Immature Granulocytes # 0.01 10^3uL; Immature Granulocytes % 0.1 %; Lymphocytes # 2.5 K/mm3 (0.7-4.5); Lymphocytes % 33.8 % (10-50); Mean Corpuscular HGB Conc 32.7 g/dL (31.8-35.4); Mean Corpuscular Hemoglobin 31.3 pg (27.0-31.2); Mean Corpuscular Volume 95.9 fl (81-99); Mean Platelet Volume 10.4 fl (7.4-10.4); Monocytes # 0.5 K/mm3 (0.1-1.0); Monocytes % 6.7 % (1.7-9.3); Neutrophils # 4.4 K/mm3 (1.8-7.8); Neutrophils % 58.4 % (37.0-80.0); Nucleated Red Blood Cells # 0 10^3/uL; Nucleated Red Blood Cells % 0 %; Platelet Count 366 K/mm3 (142-424); Red Blood Count 4.12 M/mm3 (4.20-5.40); Red Cell Distribution Width 13.5 % (11.5-17.5); Red Cell Distribution Width-SD 47.7 fL; White Blood Count 7.5 K/mm3 (4.8-10.8)
[2025-02-13 23:49] LABS: Chloride 104 mmol/L (98-107)
[2025-02-13 23:50] LABS: Albumin Level 5.1 g/dl (3.5-5.0); Potassium 3.4 mmoL/L (3.5-5.1); Sodium 140 mmol/L (136-145)
[2025-02-13 23:52] LABS: Blood Urea Nitrogen 15 mg/dl (7-17); Creatinine Clearance Estimated 106 mL/min (50-200); Estimated Glomerular Filt Rate 106 ml/min (>60); GFR (African American) 128 ML/MIN (>60)
[2025-02-13 23:53] LABS: Alanine Aminotransferase 15 U/L (12-78); Albumin/Globulin Ratio 1.8 (1.1-1.8); Alkaline Phosphatase 53 U/L (38-126); Anion Gap 9.4 mEq/L (5-15); Aspartate Amino Transferase 29 U/L (14-36); Bilirubin,Total 0.2 mg/dl (0.2-1.3); Calcium 9.5 mg/dl (8.4-10.2); Carbon Dioxide 30 mmol/L (22.0-30.0); Globulin 2.8 g/dL (1.3-3.2); Glucose 104 mg/dl (74-100); Total Protein,Serum 7.9 g/dl (6.3-8.2)
[2025-02-14] VITALS: BP 119/83; PULSE 105; RESP 13; O2SAT 99
[2025-02-14 00:02] LABS: HCG Qualitative, Serum Negative (Negative)
[2025-02-14 00:34] LABS: HIV Combo NEGATIVE (Negative)
[2025-02-14 00:42] LABS: Hepatitis C Ab Qual. W/ RFX NEGATIVE (Negative)
[2025-02-14 01:38] VITALS: BP 119/83; PULSE 96; RESP 19; TEMP 37; O2SAT 100
== END 2025-02-14 01:51 | disposition home or self-care (01) ==
PROVIDERS: Emergency Provider Emergency Medicine
DX: R07.9 Chest pain, unspecified (principal); R09.A2 Foreign body sensation, throat; F41.1 Generalized anxiety disorder; K21.00 Gastro-esophageal reflux disease with esophagitis, without bleeding; F17.290 Nicotine dependence, other tobacco product, uncomplicated
CPT/HCPCS: 70360; 71046; 80053; 84703; 85025; 86803; 87389; 93005; 96360; 99285; J7120

== ENCOUNTER 2025-08-31 20:36 | Emergency (ER) | payer OTHER, SELFPAY ==
[2025-08-31 20:51] VITALS: BP 132/78; PULSE 113; RESP 20; TEMP 36.8; O2SAT 100; BMI 21.2
--- NOTE | 2025-08-31 21:07 | ED_ITS ---
Discharge Plan Disposition Patient Disposition: Home, Self-Care Condition: Good Prescriptions Prescriptions: New cephalexin 250 mg/5 mL suspension for reconstitution 500 mg PO TID Qty: 200 0RF No Action famotidine 40 mg/5 mL (8 mg/mL) suspension for reconstitution 2.5 ml PO BID Patient Comments: Take 2.5 mL( 1/2 teaspoonful) (20 mg) by mouth 2 (two) times a day. Referrals Follow up/Referrals: Moriah Aly DO [Staff Physician, [employer]] - See instructions Provider,Referral, [Referring, Medical] - See instructions Activity Restrictions/Add. Instructions Additional Instructions/Restrictions: Take the antibiotics as prescribed. Call Dr. Aly to schedule an appointment in clinic. Return to the emergency department for any acute or worsening symptoms. Clinical Impressions Clinical Impression: Intermittent lower abdominal pain Instructions Patient Instructions: DI for Acute Abdominal Pain Print Language Print Language: Ukrainian Discharge ED Provider: Erin Todd General Adult HPI General Chief complaint: Abdominal Pain Stated complaint: five weeks preg, abdominal pain Time Seen by Provider: 08/31/25 21:07 Mode of Arrival: Ambulatory Source of Information: Patient and Spouse Description of Symptoms (Recalled from ER Triage Doc. by RN): patient presents for lower abdominal pain that started around 1 week ago. she is 5 weeks . she denies any bleeding. 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 the patinet rates her pain 3/10 but oes intermittenly get severe . she sees Nena Zhu at [facility]. History of Present Illness HPI narrative: Patient is a 20-year old female who is G3, P2 presented to the emergency department with left lower quadrant intermittent abdominal pain. Patient states that she has a history of left ovarian torsion. Patient states that she is about 5 weeks has not seen an AUT[employer] DELIVERY DRIVER yet. Patient states that her pain is intermittent in nature, not currently present. Patient denies any urinary symptoms. Patient denies any vaginal bleeding. Patient denies any fevers, diarrhea or vomiting. Related Data Home Medications ?Medication ?Instructions ?Recorded ?Confirmed famotidine 40 mg/5 mL (8 mg/mL) 2.5 ml PO BID 10/30/24 10/30/24 oral suspension Previous Rx's ?Medication ?Instructions ?Recorded cephalexin 250 mg/5 mL oral 500 mg (10 mL) PO TID #200 mL 08/31/25 suspension Allergies Allergy/AdvReac Type Severity Reaction Status Date / Time sulfamethoxazole (From Allergy Verified 03/19/24 22:57 Bactrim) trimethoprim (From Bactrim) Allergy Verified 03/19/24 22:57 PFSH [facility] Disclaimer: The information contained in this section may have been updated after the patient was seen, as this information can be updated by other users. Medical History (Updated 08/31/25 @ 23:09 by Erin Todd DO) Dysphagia GERD (gastroesophageal reflux disease) Family History (Updated 10/30/24 @ 02:22 by Daksha Donaldson RN) Grandmother Abdominal aneurysm Dementia Father Heart attack Grandmother Lung cancer Family/Other Breast cancer Mother Dementia POTS (postural orthostatic tachycardia syndrome) Family history of PCOS Sister Family history of PCOS Social History (Updated 10/30/24 @ 02:24 by Daksha Donaldson RN) Smoking Status: Never smoker alcohol intake: never current occupational status: unemployed Travel in the last 8 weeks?: None do you feel safe at home: Yes victim of physical abuse: No victim of emotional abuse: No victim of sexual abuse: No Have you lived/traveled outside US in past 30 days?: No Contact w/someone who lives/traveled outside US past 30 days?: No Exposure to someone with infectious disease in past 14 days?: No Do you have a fever (greater than 100.4 F or 38 C)?: No Have you tested positive for COVID-19?: No Exposed to someone with COVID-19 in past 14 days?: No Do you have a sore throat?: No Do you have a cough?: No Do you have any weakness?: No Do you have any diarrhea?: No Are you experiencing any unusual bleeding?: No Do you have any muscle aches/pain?: No Do you have any abdominal pain?: No Are you experiencing loss of taste or smell?: No Other Medical History Have you received the Flu Vaccine for this season: No Have you received the Pneumonia Vaccine: No ROS Obtained: Yes All systems reviewed & no additional complaints except as documented and Yes Systems reviewed as appropriate & no additional complaints except as documented Physical Exam General General appearance: alert and in no apparent distress Head Head exam: atraumatic, normocephalic and normal inspection Eye Eye exam: Present normal appearance, PERRL and EOMI; Absent scleral icterus ENT ENT exam: Present normal exam and normal external ear exam Neck Neck exam: Present normal inspection and full ROM Chest Chest inspection: Present normal inspection and symmetric chest wall rise Respiratory Respiratory exam: Present normal lung sounds bilaterally; Absent respiratory distress or wheezes Cardiovascular Cardiovascular exam: Present regular rate, normal rhythm and normal heart sounds Abdominal Exam Abdominal exam: Present soft, distention and tenderness (LLQ tenderness); Absent guarding or rebound Extremities Exam Extremities exam: Present normal inspection and full ROM Back Exam Back exam: Present normal inspection and full ROM Neurological Exam Neurological exam: Present alert and oriented X3 Psychiatric Psychiatric exam: Present normal affect and normal mood Skin Skin exam: Present warm and dry Medical Decision Making Medical Records Medical records reviewed: Yes I reviewed the patient's medical records. Screening: Per USPSTF and CDC recommendations, given the prevalence of disease in our region, it is our hospital?s policy to screen for HIV and viral Hepatitis for all patients aged 18 and over and those with ongoing risk factors. Rishi Inquiry Pt receiving controlled substance: No Vital Signs: 08/31/25 20:51 08/31/25 23:11 Temperature 98.2 F 98.6 F Temperature Source Oral Oral Pulse Rate 86 Pulse Rate [Right Radial] 113 H Respiratory Rate 20 18 Blood Pressure 136/88 Blood Pressure [Right Arm] 132/78 Blood Pressure Mean [Right Arm] 96 Blood Pressure Source [Right Arm] Automatic Cuff Blood Pressure Position [Right Arm] Sitting 02 Sat by Pulse Oximetry 100 Oxygen Delivery Method Room Air Room Air Lab Data Lab results reviewed: Yes I reviewed the patient's lab results. Lab Results 08/31/25 21:03: Urine Color Yellow, Urine Appearance Clear, Urine pH 7.0, Ur Specific [place] 1.025, Urine Protein 1+ A, Urine Glucose (UA) Negative, Urine Ketones Negative, Urine Blood Negative, Urine Nitrate Negative, Urine Bilirubin Negative, Urine Urobilinogen 0.2, Ur Leukocyte Esterase Negative, Urine RBC 5- 10, Urine WBC 5-10, Ur Squamous Epith Cells 20-50, Urine Bacteria 4+, Urine Mucus 4+, Urine HCG, Qual Positive 08/31/25 21:34: WBC 7.6, RBC 3.95 L, Hgb 12.7, Hct 36.8 L, MCV 93.2, MCH 32.2 H, MCHC 34.5, RDW 12.2, Plt Count 429 H, MPV 9.3, Neut % (Auto) 55.7, Lymph % (Auto) 34.9, [place] % (Auto) 7.5, Eos % (Auto) 1.2, Baso % (Auto) 0.4, Neut # (Auto) 4.2, Lymph # (Auto) 2.6, [place] # (Auto) 0.6, Eos # (Auto) 0.1, Baso # (Auto) 0.0, Sodium 138, Potassium 3.9, Chloride 102, Carbon Dioxide 25, Anion Gap 14.9, BUN 7, Creatinine 0.60, Estimated Creat Clear 122, Estimated GFR 125, Est GFR ( Amer) 151, Glucose 93, Calcium 9.5, Total Bilirubin 0.3, AST 25, ALT 12, Alkaline Phosphatase 53, Total Protein 7.8, Albumin 4.6, Globulin 3.2, Albumin/Globulin Ratio 1.4, HCG, Quant [id number] H 08/31/25 21:34 08/31/25 21:34 Orders (Tests/Meds): ED MEDICATIONS Discontinued Medications Generic Name Dose Route Start Last Admin Trade Name Freq PRN Reason Stop Dose Admin Cephalexin HCl 500 mg 08/31/25 21:58 08/31/25 22:36 Cephalexin 500mg Capsule PO 08/31/25 21:59 500 mg ONCE ONE Administration ORDERS Category Date Time Status CBC w/Auto Diff [Complete Blood Count Auto Diff] Stat Lab 08/31/25 21:34 Completed CMP [Comprehensive Metabolic Panel] Stat Lab 08/31/25 21:34 Completed HCG,Quantitative Stat Lab 08/31/25 21:34 Completed Urinalysis and Microscopic Stat Lab 08/31/25 21:03 Completed Urine , HCG Qual. Stat Lab 08/31/25 21:03 Completed Urine Culture Stat Micro 08/31/25 21:03 Received US OB transvaginal Stat Ultrasound 08/31/25 21:14 Completed Medical Decision Narrative: Patient is a 20-year-old female who is G3, P2, about 5 weeks by dates who presents to the emergency department with concern for left lower quadrant abdominal pain. Patient does have a history of ovarian torsion. On exam, patient is hemodynamically stable with unremarkable vital signs. Differential includes but not limited to: Ectopic , ovarian torsion, urinary tract infection, ovarian cyst, amongst others. Patient's labs were reviewed and interpreted by myself: CBC showed no leukocytosis, hemoglobin was stable. CMP was unremarkable. Beta-hCG showed 13,789. UA did have 4+ bacteria, 5-10 white blood cells, multiple squamous cells negative leuk esterase. Ultrasound was performed and showed bilateral ovarian flow, left possible hemorrhagic cyst. Uterus showed intrauterine gestation about 5 weeks 5 days. At this time, I felt the patient was stable and appropriate for discharge. Given that patient did have bacteria in her urine, patient was given a dose of Keflex here in the emergency department. Patient was sent with 5 days of Keflex. Patient has not seen OB for this yet and wishes to follow-up here in [place]. Patient was sent with a referral to Dr. Aly. Patient was given return precautions and patient was otherwise discharged home in stable condition return precautions were discussed Critical Care Critical Care Time Critical Care Time: No
[2025-08-31 21:10] LABS: Microscopic, Urine URINE MICROSCOPIC (MICROSCOPIC)
[2025-08-31 21:14] LABS: Bilirubin,Urine Negative (Negative); Color,Urine YELLOW (Yellow); Glucose,Urine (UA) Negative (Negative); Ketones,Urine Negative (Negative); Leukocyte Esterase,Urine Negative (Negative); PH,Urine 7.0 (5.0-8.5); Protein,Urine 1+ (Negative); Specific Gravity, Urine 1.025 (1.005-1.030); Urobilinogen,Urine 0.2 EU/dl (0.2)
--- NOTE | 2025-08-31 21:14 | US_ITS ---
PROCEDURE INFORMATION: Exam: US , Transvaginal Exam date and time: 08/31/2025 9:46 PM Age: 20 years old Clinical indication: Other: Llq pain; Gestational age or lmp: 5w2d; ; Additional info: R/O torsion TECHNIQUE: Imaging protocol: Real-time transvaginal obstetrical ultrasound of the maternal pelvis with image documentation. Transvaginal imaging was used for better evaluation of the fetus, adnexa, and/or cervix. COMPARISON: US TRANSVAGINAL 10/30/2024 6:56 AM FINDINGS: Gestation: Intrauterine gestational sac with mean sac diameter of 1.0 cm, correlating with an estimated gestational age of 5 weeks 5 days. Small hyperechoic structure within the gestational sac, possibly a yolk sac. MATERNAL: Left ovary/adnexa: In the left adnexa, there is a cystic structure with low-level internal echoes measuring 3.1 x 1.6 x 2.2 cm, similar to prior exam on 11/19/2024. Other findings: There is flow to the bilateral ovaries. IMPRESSION: 1. Intrauterine gestation with an estimated gestational age of 5 weeks 5 days by mean sac diameter. Questionable yolk sac is visualized. 2. Left adnexal cystic structure with low-level internal echoes, possibly a hemorrhagic cyst, similar to prior exam. 3. There is flow to both ovaries demonstrated with Doppler imaging at the time of exam.
[2025-08-31 21:15] LABS: Urine Pregnancy, HCG Qual. Positive (Negative)
[2025-08-31 21:34] LABS: Bacteria,Urine 4+ /lpf; Mucus,Urine 4+ /lpf; Squamous Epithelial Cell,Urine 20-50 #/hpf (0-5)
[2025-08-31 21:42] LABS: Hematocrit 36.8 % (37.0-47.0); Hemoglobin 12.7 g/dL (12.2-16.2); Immature Granulocytes % 0.3 %; Mean Corpuscular HGB Conc 34.5 g/dL (31.8-35.4); Mean Corpuscular Hemoglobin 32.2 pg (27.0-31.2); Mean Corpuscular Volume 93.2 fl (81-99); Nucleated Red Blood Cells % 0 %; Platelet Count 429 K/mm3 (142-424); Red Blood Count 3.95 M/mm3 (4.20-5.40); Red Cell Distribution Width-SD 42.0 fL; White Blood Count 7.6 K/mm3 (4.8-10.8)
[2025-08-31 21:58] LABS: Alanine Aminotransferase 12 U/L (12-78); Albumin Level 4.6 g/dl (3.5-5.0); Albumin/Globulin Ratio 1.4 (1.1-1.8); Alkaline Phosphatase 53 U/L (38-126); Anion Gap 14.9 mEq/L (5-15); Aspartate Amino Transferase 25 U/L (14-36); Bilirubin,Total 0.3 mg/dl (0.2-1.3); Blood Urea Nitrogen 7 mg/dl (7-17); Calcium 9.5 mg/dl (8.4-10.2); Carbon Dioxide 25 mmol/L (22.0-30.0); Chloride 102 mmol/L (98-107); Creatinine Clearance Estimated 122 mL/min (50-200); Creatinine,Serum 0.60 mg/dl (0.52-1.04); Estimated Glomerular Filt Rate 125 ml/min (>60); GFR (African American) 151 ML/MIN (>60); Globulin 3.2 g/dL (1.3-3.2); Glucose 93 mg/dl (74-100); Potassium 3.9 mmoL/L (3.5-5.1); Sodium 138 mmol/L (136-145); Total Protein,Serum 7.8 g/dl (6.3-8.2)
[2025-08-31 23:11] VITALS: BP 136/88; PULSE 86; RESP 18; TEMP 37; O2SAT 100
== END 2025-08-31 23:14 | disposition home or self-care (01) ==
PROVIDERS: Emergency Provider Student in an Organized Health Care Education/Training Program; PCP Emergency Medicine
DX: O26.891 Other specified pregnancy related conditions, first trimester (principal); R10.32 Left lower quadrant pain; O23.41 Unspecified infection of urinary tract in pregnancy, first trimester; R82.71 Bacteriuria; Z3A.01 Less than 8 weeks gestation of pregnancy
CPT/HCPCS: 76817; 80053; 81001; 81025; 84702; 85025; 87086; 99284

== ENCOUNTER 2025-09-13 15:16 | Emergency (ER) | payer OTHER, SELFPAY ==
--- NOTE | 2025-09-13 15:32 | HMH.EDGENADL ---
Discharge Plan Disposition Patient Disposition: Home, Self-Care Condition: Good Prescriptions Prescriptions: New cephalexin 250 mg/5 mL suspension for reconstitution 500 mg PO TID Qty: 200 0RF vitamin [id number] 1.7 mg- 2.4 mcg tablet 1 tab PO Q6 Qty: 20 0RF Unisom (doxylamine) 25 mg tablet 25 mg PO Q6H PRN (Reason: sleep) Qty: 20 0RF No Action famotidine 40 mg/5 mL (8 mg/mL) suspension for reconstitution 2.5 ml PO BID Patient Comments: Take 2.5 mL( 1/2 teaspoonful) (20 mg) by mouth 2 (two) times a day. cephalexin 250 mg/5 mL suspension for reconstitution 500 mg PO TID Qty: 200 0RF Referrals Follow up/Referrals: Godwin Starks MD [Primary Care Provider, Medical] - See instructions Activity Restrictions/Add. Instructions Additional Instructions/Restrictions: It is very important that you take the antibiotics as prescribed. Follow-up with OB as scheduled. Return to the emergency department for any acute or worsening symptoms. I can send you with additional medications to help with your nausea and vomiting at home. Clinical Impressions Clinical Impression: , Urinary tract infection Instructions Patient Instructions: DI for Diarrhea and Traveler's Diarrhea in Adults, DI for Diarrhea and Traveler's Diarrhea in Children, DI for Nausea in Adults, DI for Nausea in Children Print Language Print Language: Setswana Discharge ED Provider: Erin Todd Adult HPI General Chief complaint: Nausea/Vomiting/Diarrhea Stated complaint: 7 weeks ,vomiting,dizziness,back & leg evgeny Time Seen by Provider: 09/13/25 15:32 History of Present Illness HPI narrative: Patient is a 20-year-old female who was 7 weeks who is who presents to the emergency department with lower abdominal pain, vomiting, nausea. Patient denies any fevers chest pain shortness of breath. Patient denies any upper respiratory symptoms. Patient was seen here about a week ago with similar symptoms but had left lower quadrant abdominal pain at that time. Patient was sent home with antibiotics for asymptomatic bacteriuria and patient states that she only took a single dose. States that she called to make an appoint with OB and has an appointment in a week. Patient denies any bleeding abdominal cramping. Related Data Home Medications ?Medication ?Instructions ?Recorded ?Confirmed famotidine 40 mg/5 mL (8 mg/mL) 2.5 ml PO BID 10/30/24 10/30/24 oral suspension Previous Rx's ?Medication ?Instructions ?Recorded cephalexin 250 mg/5 mL oral 500 mg (10 mL) PO TID #200 mL 08/31/25 suspension cephalexin 250 mg/5 mL oral 500 mg (10 mL) PO TID #200 mL 09/13/25 suspension doxylamine succinate 25 mg tablet 25 mg PO Q6H PRN sleep #20 tabs 09/13/25 (Unisom (doxylamine)) vitamin B6 1.7 mg-cyanocobalamin 1 tab PO Q6 #20 tabs 09/13/25 2.4 mcg-herbs tablet Allergies Allergy/AdvReac Type Severity Reaction Status Date / Time sulfamethoxazole (From Allergy Hives Verified 09/13/25 15:43 Bactrim) trimethoprim (From Bactrim) Allergy Hives Verified 09/13/25 15:43 PFSH PFSH Disclaimer: The information contained in this section may have been updated after the patient was seen, as this information can be updated by other users. Medical History (Updated 09/13/25 @ 19:35 by Erin Todd DO) Dysphagia GERD (gastroesophageal reflux disease) Family History (Updated 10/30/24 @ 02:22 by Daksha Donaldson RN) Grandmother Abdominal aneurysm Dementia Father Heart attack Grandmother Lung cancer Family/Other Breast cancer Mother Dementia POTS (postural orthostatic tachycardia syndrome) Family history of PCOS Sister Family history of PCOS Social History (Updated 10/30/24 @ 02:24 by Daksha Donaldson RN) Smoking Status: Current every day smoker tobacco type: e-cigarettes alcohol intake: never current occupational status: unemployed Travel in the last 8 weeks?: None do you feel safe at home: Yes victim of physical abuse: No victim of emotional abuse: No victim of sexual abuse: No Have you lived/traveled outside US in past 30 days?: No Contact w/someone who lives/traveled outside US past 30 days?: No Exposure to someone with infectious disease in past 14 days?: No Do you have a fever (greater than 100.4 F or 38 C)?: No Have you tested positive for COVID-19?: No Exposed to someone with COVID-19 in past 14 days?: No Do you have a sore throat?: No Do you have a cough?: No Do you have any weakness?: No Do you have any diarrhea?: No Are you experiencing any unusual bleeding?: No Do you have any muscle aches/pain?: No Do you have any abdominal pain?: No Are you experiencing loss of taste or smell?: No Other Medical History Have you received the Flu Vaccine for this season: No Have you received the Pneumonia Vaccine: No ROS Obtained: Yes All systems reviewed & no additional complaints except as documented and Yes Systems reviewed as appropriate & no additional complaints except as documented Physical Exam General General appearance: alert and in no apparent distress Head Head exam: atraumatic, normocephalic and normal inspection Eye Eye exam: Present normal appearance, PERRL and EOMI; Absent scleral icterus ENT ENT exam: Present normal exam and normal external ear exam Neck Neck exam: Present normal inspection and full ROM Chest Chest inspection: Present normal inspection and symmetric chest wall rise Respiratory Respiratory exam: Present normal lung sounds bilaterally; Absent respiratory distress or wheezes Cardiovascular Cardiovascular exam: Present regular rate, normal rhythm and normal heart sounds Abdominal Exam Abdominal exam: Present soft, distention and tenderness (suprapubic tenderness); Absent guarding or rebound Extremities Exam Extremities exam: Present normal inspection and full ROM Back Exam Back exam: Present normal inspection and full ROM Neurological Exam Neurological exam: Present alert and oriented X3 Psychiatric Psychiatric exam: Present normal affect and normal mood Skin Skin exam: Present warm and dry Medical Decision Making Medical Records Medical records reviewed: Yes I reviewed the patient's medical records. Screening: Per USPSTF and CDC recommendations, given the prevalence of disease in our region, it is our hospital?s policy to screen for HIV and viral Hepatitis for all patients aged 18 and over and those with ongoing risk factors. Rishi Inquiry Pt receiving controlled substance: No Vital Signs: 09/13/25 15:33 09/13/25 15:36 09/13/25 19:55 Temperature 98.6 F 98.2 F Temperature Source Oral Oral Pulse Rate 110 H 98 H Pulse Rate [Right Brachial] 109 H Respiratory Rate 16 18 Blood Pressure 102/69 L 108/62 L Blood Pressure [Right Arm] 102/69 L Blood Pressure Mean [Right Arm] 80 Blood Pressure Source Automatic Cuff Blood Pressure Source [Right Arm] Automatic Cuff Blood Pressure Position Sitting Blood Pressure Position [Right Arm] Sitting 02 Sat by Pulse Oximetry 100 98 Oxygen Delivery Method Room Air Room Air Lab Data Lab results reviewed: Yes I reviewed the patient's lab results. Lab Results 09/13/25 15:30: Urine Color Yellow, Urine Appearance Clear, Urine pH 7.5, Ur Specific [place] 1.020, Urine Protein Negative, Urine Glucose (UA) Negative, Urine Ketones 3+, Urine Blood Negative, Urine Nitrate Negative, Urine Bilirubin Negative, Urine Urobilinogen 0.2, Ur Leukocyte Esterase Negative, Urine RBC None, Urine WBC 3-5, Ur Squamous Epith Cells 5-10, Urine Bacteria 2+, Urine Mucus 2+ 09/13/25 15:58: WBC 11.9 H, RBC 3.96 L, Hgb 12.6, Hct 36.7 L, MCV 92.7, MCH 31.8 H, MCHC 34.3, RDW 12.3, Plt Count 376, MPV 9.5, Neut % (Auto) 92.6 H, Lymph % (Auto) 3.9 L, [place] % (Auto) 3.0, Eos % (Auto) 0.0 L, Baso % (Auto) 0.2, Neut # (Auto) 11.0 H, Lymph # (Auto) 0.5 L, [place] # (Auto) 0.4, Eos # (Auto) 0.0, Baso # (Auto) 0.0, Total Counted 100, Neutrophils % (Manual) 95 H, Lymphocytes % (Manual) 5 L, Platelet Estimate Normal, RBC Morphology Normal, Sodium 136, Potassium 3.8, Chloride 102, Carbon Dioxide 25, Anion Gap 12.8, BUN 10, Creatinine 0.50 L, Estimated Creat Clear 145, Estimated GFR 154, Est GFR ( Amer) 187, Glucose 87, Calcium 9.6, Total Bilirubin 0.9, AST 25, ALT 16, Alkaline Phosphatase 49, Total Protein 7.9, Albumin 4.9, Globulin 3.0, Albumin/Globulin Ratio 1.6, Lipase 59, HCG, Quant [id number] H 09/13/25 17:01: SARS-CoV-2 (PCR) Not detected, Influenza Type A (PCR) Not detected, Influenza Type B (PCR) Not detected, RSV (PCR) Not detected, Rhinovirus (PCR) Not detected 09/13/25 17:07: Urine Color Yellow, Urine Appearance Clear, Urine pH 6.0, Ur Specific [place] 1.025, Urine Protein Negative, Urine Glucose (UA) Negative, Urine Ketones 3+, Urine Blood Negative, Urine Nitrate Negative, Urine Bilirubin 1+ A, Urine Urobilinogen 0.2, Ur Leukocyte Esterase Negative, Urine WBC 5-10, Ur Squamous Epith Cells 5-10, Urine Bacteria 1+, Urine Mucus 1+ 09/13/25 15:58 09/13/25 15:58 Orders (Tests/Meds): ED MEDICATIONS Discontinued Medications Generic Name Dose Route Start Last Admin Trade Name Freq PRN Reason Stop Dose Admin Acetaminophen 1,000 mg 09/13/25 16:04 09/13/25 16:08 Acetaminophen 325mg/10.15ml Udc PO 09/13/25 16:05 1,000 mg ONCE ONE Administration Cephalexin HCl 500 mg 09/13/25 19:30 09/13/25 19:49 Cephalexin 250mg/5ml 100ml Susp PO 09/13/25 19:31 500 mg ONCE ONE Administration Sodium Chloride 1,000 mls @ 999 mls/hr 09/13/25 15:52 09/13/25 19:03 Sod Chlor 0.9% 1000ml Bag IV 09/13/25 16:52 Infused .Q1H1M ONE Infusion Ondansetron HCl 4 mg 09/13/25 15:52 09/13/25 16:05 Ondansetron 4mg/2ml Vial IV 09/13/25 15:53 4 mg ONCE ONE Administration Ondansetron HCl 4 mg 09/13/25 19:30 09/13/25 19:48 Ondansetron 4mg/2ml Vial IV 09/13/25 19:31 4 mg ONCE ONE Administration ORDERS Category Date Time Status CBC w/Auto Diff [Complete Blood Count Auto Diff] Stat Lab 09/13/25 15:58 Completed CMP [Comprehensive Metabolic Panel] Stat Lab 09/13/25 15:58 Completed HCG,Quantitative Stat Lab 09/13/25 15:58 Completed Lipase Stat Lab 09/13/25 15:58 Completed Mini Respiratory Panel Stat Lab 09/13/25 17:01 Completed UA [Urinalysis and Microscopic] Stat Lab 09/13/25 15:30 Completed UA [Urinalysis and Microscopic] Stat Lab 09/13/25 17:07 Completed Urine Culture Stat Micro 09/13/25 15:30 Received US OB transvaginal Stat Ultrasound 09/13/25 16:16 Completed Medical Decision Narrative: Patient is a 20-year-old female who is , about 7 weeks who presents to the emergency department with suprapubic abdominal pain, nausea vomiting. On arrival, patient was hemodynamically stable with unremarkable vital signs. On exam, patient was not hypertensive, patient was not complaining of any headache. Patient had some lower abdominal tenderness suprapubic and mild left lower quadrant. Differential includes but not limited to: Ovarian torsion, ovarian cyst, urinary tract infection, gastroenteritis, amongst others. Patient was given IV fluids, IV nausea medications and oral Tylenol. Patient's labs were reviewed and interpreted by myself: CBC showed mild leukocytosis, hemoglobin was stable. CMP was unremarkable. Beta-hCG was appropriately elevated. Urine did have white blood cells, bacteria but negative leuk esterase or nitrites. Ultrasound was obtained which showed no evidence of ovarian torsion. Patient's pain was better controlled here in the emergency department. At this time I felt the patient was stable and appropriate for discharge. I give patient a dose of oral Keflex in the emergency department and advised to continue taking this as she did not take her prior prescription. Patient was also given Unisom and dicyclomine for continued nausea and vomiting in . Patient was otherwise discharged home in stable condition advised to follow-up with OB. Critical Care Critical Care Time Critical Care Time: No
[2025-09-13 15:33] VITALS: BP 102/69; PULSE 110; O2SAT 100
[2025-09-13 15:36] VITALS: BP 102/69; PULSE 109; RESP 16; TEMP 37; O2SAT 98; BMI 20.3
--- OUTSIDE RECORDS SUMMARY | 2025-09-13 15:41 | XMS_ITS | Referral Summary ---
Author Organization [employer] ([place], [place], [place], [place], [place]) Address [address] [place] [address] Care Team Providers Care Health Associate Name Role Phone Godwin Starks MD Primary Care Provider [phone] Social History Tobacco Use Types Packs/Day Years Used Date Smoking Tobacco: Never Assessed Comments Unknown Sex and Gender Information Value Date Recorded Sex Assigned at Not on file Legal Sex Female 12:08 AM CDT Gender Identity Not on file Sexual Orientation Not on file Plan of Treatment Not on file Insurance [facility] Care Teams Health Associate Relationship Specialty Start Date End Date Godwin Starks MD [address] [place] [phone] PCP - General Emergency Medicine 03/18/25
--- OUTSIDE RECORDS SUMMARY | 2025-09-13 15:41 | XMS_ITS | Encounter Summary ---
Author Organization [facility] Address [address] [place] [address] Care Team Providers Care Fourdrinier Operator Name Role Phone Provider, No Known Primary Care Provider Unavail able Encounter Details Date Type Department Care Team (Late st Contact Info) Description 08/23/2025 Telephone [facility] [address] [facility] [address] [place] [phone] Prema Fabian MD [address] [facility] [address] [place], [place] [id number] Social History Tobacco Use Types Packs/Day Years Used Date Smoking Tobacco: Former Electronic Cigarette Quit: 03/27/2019 Smokeless Tobacco: Never Alcohol Use Standard Drinks/Week Comments No 0 (1 standard drink = 0.6 oz pur e alcohol) AUDIT-C Answer Date Recorded Q1: How often do you have a drink containing alcohol? Never 02/06/2023 Q2: How many drinks containi ng alcohol do you have on a typical day when you are drinking? Patient does not drink Q3: How often do you have si x or more drinks on one occasion? Never 02/06/2023 [place] Depression Scale Answer Date Recorded [place] Depression Scale Total 7 02/07/2023 The thought of harming myself has occurred to me . Unrecognized value 02/07/2023 Abuse Screen Answer Date Recorded Feels Unsafe at Home or Work/School no 02/24/2025 Feels Threatened by Someone no 12/2024 Does Anyone Try to Keep You From Having Contact with Others or Doing Things Outside Your Home? no 02/24/2025 Physical Signs of Abuse Present no 02/24/2025 Disabilities Answer Date Recorded Difficulty Concentrating, Remembering or Making Decisions no 02/06/2023 Difficulty Managing Errands Independently no 02/06/2023 Comments No Sex and Gender Information Value Date Recorded Sex Assigned at Not on file Legal Sex Female 11:26 AM EDT Gender Identity Not on file Sexual Orientation Not on file Occupation Industry Job Start Date Job End Date unemployed Not on file Not on file Not on file documented as of this encounter Miscellaneous Notes * Telephone Encounter - Valentina Garcia RN - 08/23/2025 5:14 PM EST Patient of Dr. Fabian; had 02/07/2023; has not been seen here since. Patient did not return for PP visit. She is scheduled for NOB visit 09/20/25. Returned patient's call. LMP 07/25/25 = 4w 1d +UPT 08/19/25 Reports intermittent stabbing pain in LLQ past 2-3 days; occurs twice a day at most , mild intensity, and lasts 3-4 minutes; improves if she sits down or rubs the area. Denies any bleeding or other problems. Asking if she needs to be seen sooner than 09/20/25 given her hx of DUKE in previous . Advised patient to monitor and call for any bleeding or worsening symptoms. Reviewed bleeding/ectopic precautions. Keep appointment as scheduled. Patient v/u and agreed. * Telephone Encounter - Bonnie Duran RegSched Rep - 08/23/2025 3:36 PM EST Lmp 07/25 scheduled 09/20 pt has hx of subchronic hemorrhage wanted to know if she needed to be seen sooner due to this documented in this encounter Plan of Treatment Upcoming Encounters Date Type Department Care Team (Late st Contact Info) Description 09/20/2025 1:30 PM EST Ancillary Procedure [facility] O[facility] [address] [phone] 09/20/2025 2:00 PM EST Initial [facility] [address] [phone] Prema Fabian MD [address] [address] documented as of this encounter Visit Diagnoses Not on filedocumented in this encounter Care Teams Fourdrinier Operator Relationship Specialty Start Date End Date Provider, [place] [address] PCP - General 04/13/22 documented as of this encounter
--- OUTSIDE RECORDS SUMMARY | 2025-09-13 15:41 | XMS_ITS | Clinical Summary ---
Author Organization [facility] Address [address] [place] [address] Care Team Providers Care County Extension Agent Name Role Phone Provider, No Known Primary Care Provider Unavail able Allergies Active Allergy Reactions Criticality Noted Date Comments Sulfamethoxazole-Trimethoprim Hives Low 2016 Penicillins Rash Low 12/06/2016 Medications Pediatric Multivit-Minerals -C (Flintstones Gummies Bone Build) chewable tablet Chew. Active Active Problems Problem Noted Date Diagnosed Date Third trimester 02/12/2023 02/06/2023 Iron deficiency anemia secon luis e to inadequate dietary iron intake 01/03/2023 Overview (01/03/2023): Hematocrit 29% at 28 weeks Iron sulfate 325 mg twice daily 12/20/2022 Overview (01/18/2023): UDS negative 07/26/22, previous h/o THC in NOB urine Cell Free DNA; M21 Negative; Female Growth 36 wk; 62%; AC 82% Maternal anemia in , antepartum 023 Chlamydia infection during 08/09/2022 Family history of congenital heart defect 2021 Overview (07/07/2022): Patient's maternal uncle History of delivery 07/06/2022 Overview (10/11/2022): Had subchorionic hemorrhage and partial abruption Will need CL and 17OHP starting at 16wk PTD 30wk Resolved Problems Problem Noted Date Diagnosed Date Resolved Date care, subsequent pr egnancy, first trimester 08/09/2022 12/06/2022 History of labor 07/06/2022 8 weeks gestation of 07/06/2022 10/11/2022 (spontaneous vaginal delivery) 10/25/2019 07/06/2022 labor in third trime ster without delivery 10/22/2019 07/06/2022 Antepartum bleeding, third trimester 10/16/2019 10/25/2019 Pelvic pain during in second trimester, antepartum 09/20/2019 10/25/2019 Pelvic pain affecting pregna ncy in second trimester, antepartum 08/07/2019 10/25/2019 08/01/2019 10/25/2019 Encounters Date Type Department Care Team Description 08/23/2025 Telephone [facility] OBGYN [address] [phone] Prema Fabian MD from Last 3 Months Immunizations Immunization Administration Dates Next Due DTaP, Unspecified 07/04/2004 Hib (PRP-OMP) 04/25/2006 IPV 04/03/2004 MMR 07/04/2004 PEDS-Pneumococcal Conjugate (PCV7) 07/04/2004 Tdap 08/29/2015 Varicella 11/25/2013,04/03/2004 Family History Medical History Relation Name Comments Heart attack Father Breast cancer Maternal Aunt Bipolar disorder Mother Dementia Mother Other Mother POTS Schizophrenia Mother Lung cancer Paternal Grandmother Seizures Sister Colon cancer Neg Hx Ovarian cancer Neg Hx Uterine cancer Neg Hx Relation Name Status Comments Father Alive Maternal Aunt Mother Alive Paternal Grandmother Sister Social History Tobacco Use Types Packs/Day Years Used Date Smoking Tobacco: Former Electronic Cigarette Quit: 03/27/2019 Smokeless Tobacco: Never Tobacco Cessation:Counseling Given: Not Answered Alcohol Use Standard Drinks/Week Comments No 0 [...] more drinks on one occasion? Never 02/06/2023 [place] Depression Scale Answer Date Recorded [place] Depression Scale Total 7 02/07/2023 The thought [...] file Not on file Not on file Last Filed Vital Signs Vital Sign Reading Time Taken Comments Blood Pressure 120/82 02/24/2025 3:38 AM EDT Pulse 110 02/24/2025 3:38 AM EDT Temperature 36.8 C (98.2 F) 02/24/2025 3:38 AM EDT Respiratory Rate 17 02/24/2025 3:38 AM EDT Oxygen Saturation 100% 02/24/2025 3:38 AM EDT Inhaled Oxygen Concentration - - Weight 49.4 kg (109 lb) 02/24/2025 3:38 AM EDT Height 157.5 cm (5' 2 ) 02/24/2025 3:38 AM EDT Body Mass Index 19.94 02/24/2025 3:38 AM EDT Plan of Treatment Upcoming Encounters Date Type Department Care Team (Late st Contact Info) Description 09/20/2025 1:30 PM EST Ancillary Procedure [facility] OBGYN [address] [place] [address] 09/20/2025 2:00 PM EST Initial [facility] OBGYN 1700 [facility] [address] [place] [address] Prema Fabian MD [address] [facility] [address] [place] [id number] Health Maintenance Due Date Last Done Comments Annual Gynecologic Pelvic an d Breast Exam 2003 ANNUAL PHYSICAL 02/04/2017 HPV VACCINES (1 - 3-dose series) 2018 MENINGOCOCCAL B VACCINE (1 o f 2 - Standard) 2019 CHLAMYDIA SCREENING 01/19/2024 01/18/2023, 08/09/2022, 07/06/2022 PAP SMEAR 2024 INFLUENZA VACCINE 04/23/2025 TDAP/TD VACCINES (2 - Td or Tdap) 08/29/2025 08/29/2015 Pneumococcal Vaccine 0-49 Aged Out 07/04/2004 No longer eligible based on patient's age to complete this topic MENINGOCOCCAL VACCINE Aged Out 08/29/2015 No dave kathryn eligible based on patient's age to complete this topic HEPATITIS C SCREENING Completed 10/11/2024 , 07/06/2022 Procedures Procedure Name Priority Date/Time Associated Diagnosis Comments CHLAMYDIA TRACHOMATIS, NEISSERIA GONORRHOEAE, TRICHOMONAS VAGINALIS, PCR Routine 01/18/2023 10:30 AM EDT 36 weeks gestation of Chlamydia infection during OBSTETRIC PANEL Routine 07/06/2022 9:42 AM EDT 8 weeks gestation of from Last 3 Months or Most Recently Relevant to Health Maintenance Results * Chlamydia trachomatis, Neisseria gonorrhoeae, Trichomonas vaginalis, PCR - Swab, Cervix (0:30 AM EDT) Chlamydia trachomatis, EVENS Negative Negative [facility] Gonococcus by EVENS Negative Negative [facility] Trichomonas vaginosis Negative Negative [facility] Swab Cervix uteri structure / Unknown 01/18/2023 10:30 AM EDT 01/18/2023 Comment:PR HOLLY- [id number] Narrative [facility] (AMBULATORY) - 01/22/2023 7:08 PM EDT Performed at: - [address] [place] [id number] Tooling Manager: Tash Nettles MD, Phone: [phone] Patient Fasting: N Shruti Donato Malu [employer] MICROBIOLOGY - GENERAL OR DERABLES Final Result [facility] [address] [place] [address], [facility] [address] [place] [address], * Obstetric Panel (07/06/2022 9:42 AM EDT) Hepatitis B Surface Ag Negative Negative [facility] Hep C Virus Ab <0.1 0.0 - 0.9 s/co ratio [facility] Comment: Negative: < 0.8 Indeterminate: 0.8 - 0.9 Positive: > 0.9 HCV antibody alone does not differentiate between previous resolved infection and active infection. The CDC and current clinical guidelines recommend that a positive HCV antibody result be followed up with an HCV RNA test to support the diagnosis of acute HCV infection. [facility] offers Hepatitis C Virus (HCV) RNA, Diagnosis, EVENS (495500) and Hepatitis C Virus (HCV) Antibody with reflex to Quantitative Real-time PCR (940792). RPR Non Reactive Non Reactive [facility] Rubella Antibodies, IgG 1.71 Immune >0.99 index [facility] Comment: Non-immune <0.90 Equivocal 0.90 - 0.99 Immune >0.99 ABO Type A [facility] Rh Factor Positive [facility] Comment: Please note: Prior records for this patient's ABO / Rh type are not available for additional verification. Antibody Screen Negative Negative [facility] WBC 8.2 3.4 - 10.8 x10E3/uL [facility] RBC 3.92 3.77 - 5.28 x10E6/uL [facility] Hemoglobin 12.0 11.1 - 15.9 g/dL [facility] Hematocrit 36.8 34.0 - 46.6 % [facility] MCV 94 79 - 97 fL [facility] MCH 30.6 26.6 - 33.0 pg [facility] MCHC 32.6 31.5 - 35.7 g/dL [facility] RDW 13.2 11.7 - 15.4 % [facility] Platelets 438 150 - 450 x10E3/uL [facility] Neutrophil Rel % 71 Not Estab. % [facility] Lymphocyte Rel % 22 Not Estab. % [facility] Monocyte Rel % 6 Not Estab. % [facility] Eosinophil Rel % 1 Not Estab. % [facility] Basophil Rel % 0 Not Estab. % [facility] Neutrophils Absolute 5.8 1.4 - 7.0 x10E3/uL [facility] Lymphocytes Absolute 1.8 0.7 - 3.1 x10E3/uL [facility] Monocytes Absolute 0.5 0.1 - 0.9 x10E3/uL [facility] Eosinophils Absolute 0.1 0.0 - 0.4 x10E3/uL [facility] Basophils Absolute 0.0 0.0 - 0.2 x10E3/uL [facility] Immature Granulocyte Rel % 0 Not Estab. % [facility] Immature Grans Absolute 0.0 0.0 - 0.1 x10E3/uL [facility] Blood 07/06/2022 9:42 AM EDT 07/07/2022 Narrative [facility] ([facility]) - 07/07/2022 8:10 AM EDT Performed at: 01 - [facility] [address] [place] [id number] Tooling Manager: Mason Cardenas PhD, Phone: [phone] Patient Fasting: N Prema Fabian MD LAB BLOOD ORDERABLES Final Result [facility] (AMBULATORY) [address] [place] [address], [facility] [address] [place] [address], from Last 3 Months or Most Recently Relevant to Health Maintenance Insurance Advance Directives * CPR (Attempt to Resuscitate) (Latest Code Status on File) Date Activated Date Inactivated Comments 02/07/2023 9:20 AM 02/09/2023 3:17 PM Question Answer Comments Code Status (Patient has no pulse and is not breathing): CPR (Attempt to Resuscitate) Medical Interventions (Patie nt has pulse or is breathing): Full * CPR (Attempt to Resuscitate) Date Activated Date Inactivated Comments 10/24/2019 3:06 AM 10/25/2019 3:32 PM Question Answer Comments Code Status (Patient has no pulse and is not breathing): CPR (Attempt to Resuscitate) Medical Interventions (Patie nt has pulse or is breathing): Full * CPR (Attempt to Resuscitate) Date Activated Date Inactivated Comments 10/22/2019 7:48 AM 10/24/2019 3:06 AM Question Answer Comments Code Status (Patient has no pulse and is not breathing): CPR (Attempt to Resuscitate) Medical Interventions (Patie nt has pulse or is breathing): Full Care Teams County Extension Agent Relationship Specialty Start Date End Date Provider, [place] [address] PCP - General 04/13/22
--- OUTSIDE RECORDS SUMMARY | 2025-09-13 15:41 | XMS_ITS | Clinical Summary ---
Author Organization Healthcare Address [facility] [place] [address] Care Team Providers Care Industrial Economics Teacher Name Role Phone Pcp, No Primary Care Provider Unavailabl e Allergies Active Allergy Reactions Criticality Noted Date Comments Sulfamethoxazole-Trimethopri m Hives Medium 10/11/2024 Penicillins Other - please docum ent in the comment field,Unknown - Patient states they do not know rxn details Low 04/11/2014 Medications Pediatric Multivit-Mineral s (Flintstones Gummies Bone Build) chewable tablet Chew. Active famotidine (Pepcid) 40 MG/5ML suspension Take 2.5 mL (20 mg) by mouth 2 (two) times a day. 50 mL 2 10/19/2024 Active Active Problems No known active problems Immunizations Immunization Administration Dates Next Due DTaP, Unspecified 07/04/2004 Hib (PRP-OMP) 04/25/2006 IPV 04/03/2004 MMR 07/04/2004 Meningococcal MCV4, Unspecified 08/29/2015 Pneumococcal Conjugate PCV 7 07/04/2004 Tdap 08/29/2015 Varicella 11/25/2013,04/03/2004 Family History Medical History Relation Name Comments Cardiomyopathy Cousin Seizures Father Heart attack Maternal Grandfather Marleen Parkinson White syndrome Maternal Grandfather Conversions - Other Mother POTS (po stural orthostatic tachycardia syndrome) Drug abuse Mother Heart disease Mother Hernia Mother Bipolar disorder Sister Relation Name Status Comments Cousin Father Maternal Grandfather Mother Sister Social History Tobacco Use Types Packs/Day Years Used Date Smoking Tobacco: Never Passive Smoke Exposure: Yes Smokeless Tobacco: Never Tobacco Cessation:Counseling Given: Not Answered Alcohol Use Standard Drinks/Week Comments Not Currently 0 (1 standard drink = 0.6 oz pur e alcohol) PHQ-2 Answer Date Recorded Patient Health Questionnaire-2 Score 0 10/19/2024 PHQ-9 Answer Date Recorded Patient Health Questionnaire-9 Score 4 10/19/2024 Comments Unknown Sex and Gender Information Value Date Recorded Sex Assigned at Not on file Legal Sex Female 6:38 PM EDT Gender Identity Not on file Sexual Orientation Not on file Last Filed Vital Signs Vital Sign Reading Time Taken Comments Blood Pressure 107/65 04/02/2025 3:49 AM EDT Pulse 108 04/02/2025 3:49 AM EDT Temperature 36.7 C (98.1 F) 04/02/2025 3:49 AM EDT Respiratory Rate 20 04/02/2025 3:49 AM EDT Oxygen Saturation 100% 04/02/2025 3:49 AM EDT Inhaled Oxygen Concentration - - Weight 53.8 kg (118 lb 9.7 oz) 10/19/2024 10:16 AM EST Height 157.5 cm (5' 2 ) 10/19/2024 10:16 AM EST Body Mass Index 21.69 10/19/2024 10:16 AM EST Plan of Treatment Health Maintenance Due Date Last Done Comments [facility]-/Child/Adol SDOH Screenings 2003 [facility]-Hepatitis B Vaccines (3 of 3 - 3-dose series) 2003 2003, 2003 [facility]-IPV Vaccines (2 of 3 - 4-dose series) 05/27/2007 04/29/2007, 04/03/2004 HPV Vaccines (1 - 3-dose series) 2018 [facility]- SDOH Screenings 2021 [facility]-Adult SDOH Screenings 2021 [facility]-Pap Smear 2024 [id number] Vaccine ( season) 2025 [facility]-Influenza Vaccine (#1) 2025 [facility]-DTaP,Tdap,and Td Vaccines (7 - Td or Tdap) 08/29/2025 08/29/2015, 04/29/2007, 07/04/2004, Additional history exists [facility]-Depression Screening 10/19/2025 10/19/2024, 09/24 [facility]-Zoster Vaccines (1 of 2) 2053 11/25/2013, 04/03/2004 [facility]-Pneumococcal Vaccine: Pediatrics (0 to 5 Years) and At-Risk Patients (6 to 49 Years) Aged Out 07/04/2004 No longer eligible based on patient's age to complete this topic [facility]-HIB Vaccines Completed 04/25/2006, , 2003 [facility]-Varicella Vaccines Completed 11/25/2013, 2003 [facility]-HIV Screening Completed 10/11/2024 [facility]-Hepatitis C Screening Completed 10/11/2024 [facility]-Hepatitis A Vaccines Aged Out No longer eligible based on patient's age to complete this topic [facility]-Rotavirus Vaccines Aged Out No lo nger eligible based on patient's age to complete this topic Procedures Procedure Name Priority Date/Time Associated Diagnosis Comments HEPATITIS C ANTIBODY - ED W/REFLEX TO HCV QUANT PCR STAT 10/11/2024 8:34 AM EST ED HIV 1/2 ANTIBODY/ANTIGEN SCREEN WITH REFLEX TO HIV I/II DIFFERENTIATION STAT 10/11/2024 8:34 AM EST from Last 3 Months or Most Recently Relevant to Health Maintenance Results * ED HIV 1/2 Antibody/Antigen Screen w/Reflex to HIV 1/2 Differentiation (10/11/2024 8:34 AM EST) HIV 1 & 2 Antibody/Antigen Screen Non Reactive Non Reactive 10/11/2024 9:32 AM EST [facility] Comment:Screening for HIV 1 & 2 antibodies, and P24 antigen is NONREACTIVE. No confirmatory testing is required. Blood Venous blood specimen / Unknown Venipuncture / Unknown 10/11/2024 8:34 AM EST 10/11/2024 8:51 AM EST Jose Raul Obrien MD LAB BLOOD ORDERABLES Final Result [facility] [address] [place] [address] * Hepatitis C Antibody - ED (10/11/2024 8:34 AM EST) Hepatitis C Antibody Negative Negative 10/11/2024 9:32 AM EST [facility] Blood Venous blood specimen / Unknown Venipuncture / Unknown 10/11/2024 8:34 AM EST 10/11/2024 8:51 AM EST Jose Raul Obrien MD LAB BLOOD ORDERABLES Final Result [facility] [address] [place] [address] from Last 3 Months or Most Recently Relevant to Health Maintenance Insurance [employer] [facility] MEDICAID Care Teams Industrial Economics Teacher Relationship Specialty Start Date End Date Pcp, No [address] [place] [address] PCP - General Family Medicine 10/11/24
--- OUTSIDE RECORDS SUMMARY | 2025-09-13 15:41 | XMS_ITS | Clinical Summary ---
Author Organization [facility] ([place], [place], [place], [place], [place]) Address [address] [place] [address] Care Team Providers Care Ehs Manager Name Role Phone Godwin Starks MD Primary Care Provider [phone] Social History Tobacco Use Types Packs/Day Years Used Date Smoking Tobacco: Never Assessed Comments Unknown Sex and Gender Information Value Date Recorded Sex Assigned at Not on file Legal Sex Female 12:08 AM CDT Gender Identity Not on file Sexual Orientation Not on file Plan of Treatment Health Maintenance Due Date Last Done Comments Depression Screening (12+) 2015 Tobacco Cessation Counseling and Screening (12+) 2015 HIV Screening 2018 Meningococcal B Vaccine (1 of 2 - Standard) 2019 Hepatitis C Screening 2021 Pap Smear 2024 COVID-19 VACCINE ( season) 2025 Influenza Vaccine (#1) 2025 DTAP/TDAP/TD VACCINES (7 - Td or Tdap) 08/29/2025 08/29/2015, 04/29/2007, 07/04/2004, Additional history exists Pneumococcal Vaccine: 0-49 Years Aged Out 07/04/2004 No longer eligible based on patient's age to complete this topic Insurance [facility] Care Teams Ehs Manager Relationship Specialty Start Date End Date Godwin Starks MD [address] [place] [phone] PCP - General Emergency Medicine 03/18/25
[2025-09-13 15:59] LABS: Microscopic, Urine URINE MICROSCOPIC (MICROSCOPIC)
[2025-09-13 16:02] LABS: Bilirubin,Urine Negative (Negative); Color,Urine YELLOW (Yellow); Glucose,Urine (UA) Negative (Negative); Ketones,Urine 3+ (Negative); Leukocyte Esterase,Urine Negative (Negative); PH,Urine 7.5 (5.0-8.5); Protein,Urine Negative (Negative); Specific Gravity, Urine 1.020 (1.005-1.030); Urobilinogen,Urine 0.2 EU/dl (0.2)
[2025-09-13] MEDS: 0.9 % SODIUM CHLORIDE 1000ML 1,000 ML 999 ML IV (16:04)
[2025-09-13] MEDS: ONDANSETRON 4MG/2ML VIAL 4 MG IV ×2 (16:05→19:48)
[2025-09-13 16:06] LABS: Hematocrit 36.7 % (37.0-47.0); Hemoglobin 12.6 g/dL (12.2-16.2); Immature Granulocytes % 0.3 %; Mean Corpuscular HGB Conc 34.3 g/dL (31.8-35.4); Mean Corpuscular Hemoglobin 31.8 pg (27.0-31.2); Mean Corpuscular Volume 92.7 fl (81-99); Nucleated Red Blood Cells % 0 %; Platelet Count 376 K/mm3 (142-424); Red Blood Count 3.96 M/mm3 (4.20-5.40); Red Cell Distribution Width-SD 41.9 fL; White Blood Count 11.9 K/mm3 (4.8-10.8)
[2025-09-13] MEDS: ACETAMINOPHEN 325MG/10.15ML UDC 1000 MG PO (16:08)
[2025-09-13 16:12] LABS: Albumin Level 4.9 g/dl (3.5-5.0); Chloride 102 mmol/L (98-107)
[2025-09-13 16:13] LABS: Potassium 3.8 mmoL/L (3.5-5.1); Sodium 136 mmol/L (136-145)
[2025-09-13 16:15] LABS: Alanine Aminotransferase 16 U/L (12-78); Alkaline Phosphatase 49 U/L (38-126); Anion Gap 12.8 mEq/L (5-15); Aspartate Amino Transferase 25 U/L (14-36); Bilirubin,Total 0.9 mg/dl (0.2-1.3); Blood Urea Nitrogen 10 mg/dl (7-17); Carbon Dioxide 25 mmol/L (22.0-30.0); Creatinine Clearance Estimated 145 mL/min (50-200); Creatinine,Serum 0.50 mg/dl (0.52-1.04); Estimated Glomerular Filt Rate 154 ml/min (>60); GFR (African American) 187 ML/MIN (>60)
[2025-09-13 16:16] LABS: Albumin/Globulin Ratio 1.6 (1.1-1.8); Calcium 9.6 mg/dl (8.4-10.2); Globulin 3.0 g/dL (1.3-3.2); Glucose 87 mg/dl (74-100); Lipase 59 U/L (23-300); Total Protein,Serum 7.9 g/dl (6.3-8.2)
--- NOTE | 2025-09-13 16:16 | US_ITS ---
PROCEDURE INFORMATION: Exam: US , Transvaginal Exam date and time: 09/13/2025 4:49 PM Age: 20 years old Clinical indication: Other: Back and abdominal pain; Gestational age or lmp: 7w1d; ; Additional info: HX of left ovarian torsion, pain llq, no bleeding TECHNIQUE: Imaging protocol: Real-time transvaginal obstetrical ultrasound of the maternal pelvis and a first trimester with image documentation. Transvaginal imaging was used for better evaluation of the fetus, adnexa, and/or cervix. Real-time duplex ultrasound scan of the arterial and venous flow of the ovaries with B-mode, color Doppler flow and spectral waveform analysis. COMPARISON: US OB TRANSVAGINAL 08/31/2025 9:46 PM FINDINGS: GESTATION: Gestation: Single live intrauterine gestation. heart rate: heart rate of 160 beats per minute. BIOMETRY: Gila rump length (CRL): Gila-rump length of 1.02 cm, correlating with gestational age of 7 weeks 1 day. MATERNAL: Uterus: 2.2 x 0.8 cm collection along gestational sac. Cervix: Closed cervix. Right ovary: Probable 1.9 x 1.5 x 2.1 cm corpus luteal cyst. Normal flow. No adnexal mass. Left ovary: No mass. Normal flow. Probable 1.9 x 3.0 x 1.77 paraovarian cyst. Intraperitoneal space: Trace free fluid within pelvis. IMPRESSION: 1. Single live intrauterine gestation. 2. Subchorionic hemorrhage.
[2025-09-13 16:35] LABS: Bacteria,Urine 2+ /lpf; Mucus,Urine 2+ /lpf
[2025-09-13 17:16] LABS: Microscopic, Urine URINE MICROSCOPIC (MICROSCOPIC)
[2025-09-13 17:16] LABS: Coronavirus 19, PCR Not Detected (NotDetected); Influenza A, PCR Not Detected (NotDetected); Influenza B, PCR Not Detected (NotDetected)
[2025-09-13 17:27] LABS: Color,Urine YELLOW (Yellow); Glucose,Urine (UA) Negative (Negative); Ketones,Urine 3+ (Negative); Leukocyte Esterase,Urine Negative (Negative); PH,Urine 6.0 (5.0-8.5); Protein,Urine Negative (Negative); Specific Gravity, Urine 1.025 (1.005-1.030); Urobilinogen,Urine 0.2 EU/dl (0.2)
[2025-09-13 17:35] LABS: Bacteria,Urine 1+ /lpf; Bilirubin,Urine 1+ (Negative); Mucus,Urine 1+ /lpf
[2025-09-13 17:44] LABS: RBC Morphology Normal; Total Cells Counted 100
[2025-09-13] MEDS: cephALEXin 250MG/5ML 100ML SUSP 500 MG PO (19:49)
[2025-09-13 19:55] VITALS: BP 108/62; PULSE 98; RESP 18; TEMP 36.8; O2SAT 100
== END 2025-09-13 19:55 | disposition home or self-care (01) ==
PROVIDERS: Emergency Provider Student in an Organized Health Care Education/Training Program; PCP Emergency Medicine
DX: O26.891 Other specified pregnancy related conditions, first trimester (principal); R10.30 Lower abdominal pain, unspecified; O23.41 Unspecified infection of urinary tract in pregnancy, first trimester; R11.2 Nausea with vomiting, unspecified; Z3A.01 Less than 8 weeks gestation of pregnancy
CPT/HCPCS: 76817; 80053; 81001; 83690; 84702; 85007; 85025; 87086; 87631; 96361; 96374; 96375; 99285; J2405; J7030